=== PATIENT | male | born 1940 | race Caucasian/White ===

== ENCOUNTER 2020-08-03 08:29 | Observation (INO) | payer MEDICARE ==
[2020-08-03 09:01] LABS: Absolute Neutrophil Ct (ANC) 4.13 (1.4-6.9); BASOPHIL % 0.2 % (0.0-0.4); Basophil (Absolute #) 0.01 (0-0.4); Eosinophil % 0.2 % (0.00-5.0); Eosinophil (Absolute #) 0.01 (0-0.5); Hematocrit 47.8 % (42-50); Hemoglobin 15.4 gm/dl (12.5-18.0); Lymphocyte (Absolute #) 0.93 (1.0-4.6); Lymphocytes % 16.7 % (24.0-44.0); Mean Cell Volume 89.8 fl (78-100); Mean Corpuscular Hemoglobin 28.9 pg (26-32); Mean Corpuscular Hgb Concent. 32.2 g/dl (32-36); Mean Platelet Volume 12.3 fl (7.5-11.0); Neutrophil % 73.9 % (36.0-66.0); Platelet Count 132 K/mm3 (150-450); Red Blood Count 5.32 M/mm3 (4.1-5.6); Red Cell Distribution Width 13.3 % (11.5-14.0); White Blood Count 5.6 K/mm3 (4.0-10.5)
--- NOTE | 2020-08-03 09:13 | XRAY ---
Indication: Short of breath. Suspect Covid 19. Comparison: September 06, 2008. Portable chest demonstrates new subtle hazy right midlung peripheral groundglass airspace disease. Remaining heart and lungs unremarkable. Bony thorax intact again with mild degenerative changes.
[2020-08-03 09:18] LABS: ALBUMIN 4.7 g/dL (3.5-5.0); ANION GAP 16.6 MEQ/L (5-15); BILIRUBIN,TOTAL 0.8 mg/dL (0.2-1.3); Calcium 9.7 mg/dL (8.4-10.2); Creatinine 1 1.26 mg/dL (0.66-1.25); EST GLOMERULAR FILTRATION RATE 58.8 ML/MIN; Potassium 4.3 mmol/L (3.5-5.1); Total Protein 7.8 g/dL (6.3-8.2)
[2020-08-03] MEDS ORDERED: DECADRON 10MG INJ. IV ONE (09:50)
[2020-08-03] MEDS ORDERED: Decadron 4 MG INJ ONE (10:18)
[2020-08-03] MEDS ORDERED: DECADRON 10MG INJ. ONE (10:40)
--- NOTE | 2020-08-03 10:51 | XRAY ---
Indication: Short of breath. Suspect Covid 19. Elevated d-dimer. Multiple contiguous axial images obtained through the chest using 80 cc Isovue 370 contrast and PE protocol. Comparison: Conventional CT chest January 02, 2008. There is good opacification of the pulmonary arteries to include the lobar and segmental branches. No pulmonary embolus. Heart is not enlarged. Aorta is normal in course and caliber. No pathologic mediastinal/hilar lymphadenopathy. New small hiatal hernia. Lungs demonstrates new minimal right lung and left lower lobe patchy airspace disease without consolidation/effusion. Medial right lung base demonstrates two new 6 mm noncalcified nodules (image 51, series 3). Bony thorax intact with mild degenerative changes throughout the spine. Limited upper abdomen demonstrates interval cholecystectomy. There are again bilateral renal cysts largest right midpole today measuring 4 cm, previously 1.5 cm. Impression: 1. Negative pulmonary embolus. 2. New minimal patchy bilateral airspace disease, right lung greater than left. No consolidation/large effusion. 3. Two new indeterminant right lung base noncalcified micronodules. Findings too small for PET/CT. Recommend follow-up per Fleischner guidelines. 4. New small hiatal hernia. 5. Again incidental bilateral renal cysts
--- NOTE | 2020-08-03 12:02 | ERPHSYRPT ---
- History of Present Illness Time Seen by Provider: 08/03/20 08:45 Patient Subjective Stated Complaint: SOB Triage Nursing Assessment: Patient brought back to ED via w/c and transferred self to bed. Patient A+O X 3. Patient's skin pink, warm and dry. Patient complains of increasing SOB over the past few days when ambulating. Patient also complains of diarrhea. Patient denies pain or discomfort. Patient's currently COVID positive and is hospitlized. Lungs clear a/p ever[place]. Physician History: Patient is a 80-year-old male presents to our ED with complaints of progressive generalized weakness and shortness of breath. Patient advises that his is Covid positive and currently hospitalized. Patient symptoms are mild to moderate in intensity. No specific worsening or improving factors. No associated fever. No nausea or vomiting. No diarrhea. No rash. No headache neck pain or photophobia. Patient has no meningeal signs. Patient denies chest pain. Patient voices no other complaints or concerns at this time. Timing/Duration: day(s) (3 days) Severity: moderate Modifying Factors: Improves With: movement Associated Symptoms: shortness of breath, No nausea, No vomiting, No abdominal pain, No diaphoresis, No cough, No chills, No chest pain, No fever, No headaches, No loss of appetite Allergies/Adverse Reactions: metronidazole [From Flagyl] Allergy (Intermediate, Verified 08/03/20 08:31) Metronidazole HCl [From Flagyl] Allergy (Intermediate, Verified 08/03/20 08:31) Home Medications: Omeprazole Magnesium [Prilosec Otc] 20 mg PO DAILY 03/01/12 [History] lisinopriL [Zestril] 20 mg PO DAILY 01/04/15 [History] Hx Tetanus, Diphtheria Vaccination/Date Given: No Hx Influenza Vaccination/Date Given: No Hx Pneumococcal Vaccination/Date Given: No Immunizations Up to Date: Yes Travel Risk - International Travel Have you traveled outside of the country in past 3 weeks: No - Coronavirus Screening Are you exhibiting any of the following symptoms?: Yes Symptoms: Vomiting/Diarrhea Close contact with a COVID-19 positive Pt in past 14-21 Days: Yes - Review of Systems Constitutional: No Symptoms, No Fever, No Chills Eyes: No Symptoms Ears, Nose, & Throat: No Symptoms Respiratory: No Symptoms, No Cough, No Dyspnea Cardiac: No Symptoms, No Chest Pain, No Edema, No Syncope Abdominal/Gastrointestinal: No Symptoms, No Abdominal Pain, No Nausea, No Vomiting, No Diarrhea Genitourinary Symptoms: No Symptoms, No Dysuria Musculoskeletal: No Symptoms, No Back Pain, No Neck Pain Skin: No Symptoms, No Rash Neurological: No Symptoms, No Dizziness, No Focal Weakness, No Sensory Changes Psychological: No Symptoms Endocrine: No Symptoms Hematologic/Lymphatic: No Symptoms Immunological/Allergic: No Symptoms All Other Systems: Reviewed and Negative - Past Medical History Pertinent Past Medical History: Yes ENT History: No Pertinent History Cardiac History: High Cholesterol, Other Respiratory History: No Pertinent History Musculoskeletal History: Other GI Medical History: GERD History: No Pertinent History Psycho-Social History: Anxiety Male Reproductive Disorders: No Pertinent History Other Medical History: STATES THAT PT HAS BEEN ANXIOUS, AND HAS BEEN HURTING , PERICARDITIS - Past Surgical History Past Surgical History: Yes Neuro Surgical History: No Pertinent History Cardiac: No Pertinent History Respiratory: No Pertinent History Gastrointestinal: Cholecystectomy Genitourinary: No Pertinent History Musculoskeletal: No Pertinent History Male Surgical History: No Pertinent History - Social History Smoking Status: Former smoker Exposure to second hand smoke: Yes Drug Use: none Patient Lives Alone: No - Nursing Vital Signs Nursing Vital Signs: Initial Vital Signs Temperature 98.2 F 08/03/20 08:32 Pulse Rate 87 08/03/20 08:32 Respiratory Rate 20 08/03/20 08:32 Blood Pressure 153/98 08/03/20 08:32 O2 Sat by Pulse Oximetry 98 08/03/20 08:32 Pain Scale Pain Intensity 0 - Physical Exam General Appearance: no apparent distress, alert, other (Patient appears weak ) Eye Exam: PERRL/EOMI, eyes nml inspection Ears, Nose, Throat Exam: normal ENT inspection, TMs normal, pharynx normal, moist mucous membranes Neck Exam: normal inspection, non-tender, supple, full range of motion Respiratory Exam: normal breath sounds, lungs clear, No respiratory distress Cardiovascular Exam: regular rate/rhythm, normal heart sounds, normal peripheral pulses Gastrointestinal/Abdomen Exam: soft, normal bowel sounds, No tenderness, No mass Back Exam: normal inspection, normal range of motion, No CVA tenderness, No vertebral tenderness Extremity Exam: normal inspection, normal range of motion, pelvis stable Neurologic Exam: alert, oriented x 3, cooperative, normal mood/affect, nml cerebellar function, nml station & gait, sensation nml, No motor deficits Skin Exam: normal color, warm, dry, No rash Lymphatic Exam: No adenopathy SpO2: 98 - Course Nursing assessment & vital signs reviewed: Yes EKG Interpreted by Me: RATE (85), Sinus Rhythm, NORMAL AXIS, NORMAL INTERVALS - Radiology Exams Chest X-ray Interpretation: Teleradiologist Report (Right midlung haziness and peripheral groundglass appearances.) - CT Exams Chest CT Interpretation: Tele-radiologist Report (CT chest negative for pulmonary embolism. New minimal patchy bilateral airspace disease right lung greater than left no consolidation or large effusion. To new indeterminate right lung base noncalcified micronodules. Finding too small for PET scan. Recommend follow- up. New small hiatal hernia a) Ordered Tests: Active Orders 24 hr Category Date Time Status Ict Project Manager STAT Care 08/03/20 08:36 Active EKG-ER Only STAT Care 08/03/20 08:35 Active IV Insertion STAT Care 08/03/20 08:35 Active Pulse Oximetry (ED) STAT Care 08/03/20 08:35 Active CHEST 1 VIEW (PORTABLE) Stat Exams 08/03/20 08:36 Completed CHEST WITH CONTRAST [CT] Routine Exams 08/03/20 10:04 Completed CBC W DIFF Stat Lab 08/03/20 08:40 Completed CMP Stat Lab 08/03/20 08:40 Completed D-DIMER QUANTITATIVE Stat Lab 08/03/20 08:40 Completed NT PRO BNP Stat Lab 08/03/20 08:40 Completed TROPONIN Q3H Lab 08/03/20 08:40 Completed TROPONIN Q3H Lab 08/03/20 12:10 Received TROPONIN Q3H Lab 08/03/20 14:45 Ordered TROPONIN Q3H Lab 08/03/20 17:45 Ordered TROPONIN Q3H Lab 08/03/20 20:45 Ordered Medication Summary Generic Name Dose Route Start Last Admin Trade Name Freq PRN Reason Stop Dose Admin Sodium Chloride 1,000 mls @ 100 mls/hr 08/03/20 12:30 Sodium Chloride 0.9% 1000 Ml IV 09/02/20 12:29 .Q10H COREY Discontinued Medications Generic Name Dose Route Start Last Admin Trade Name Freq PRN Reason Stop Dose Admin Dexamethasone Sodium Phosphate 8 mg 08/03/20 09:50 08/03/20 10:40 Decadron 10mg Inj. IV 08/03/20 09:51 8 mg STAT ONE Administration Dexamethasone Sodium Phosphate Confirm 08/03/20 10:18 Decadron 4 Mg Inj Administered 08/03/20 10:19 Dose 8 mg .ROUTE .STK-MED ONE Dexamethasone Sodium Phosphate Confirm 08/03/20 10:40 Decadron 10mg Inj. Administered 08/03/20 10:41 Dose 10 mg .ROUTE .STK-MED ONE Lab/Rad Data: Laboratory Result Diagrams 08/03/20 08:40 08/03/20 08:40 Laboratory Results 08/03/20 08/03/20 08/03/20 Range/Units 09:59 08:40 08:40 WBC (4.0-10.5) K/mm3 RBC (4.1-5.6) M/mm3 Hgb (12.5-18.0) gm/dl Hct (42-50) % MCV (78-100) fl MCH (26-32) pg MCHC (32-36) g/dl RDW (11.5-14.0) % Plt Count (150-450) K/mm3 MPV (7.5-11.0) fl Gran % (36.0-66.0) % Eos # (Auto) (0-0.5) Absolute Lymphs (auto) (1.0-4.6) Absolute Monos (auto) (0.0-1.3) Lymphocytes % (24.0-44.0) % Monocytes % (0.0-12.0) % Eosinophils % (0.00-5.0) % Basophils % (0.0-0.4) % Absolute Granulocytes (1.4-6.9) Basophils # (0-0.4) D-Dimer 890 H* (215-500) ng/mL Sodium (137-145) mmol/L Potassium (3.5-5.1) mmol/L Chloride (98-107) mmol/L Carbon Dioxide (22-30) mmol/L Anion Gap (5-15) MEQ/L BUN (9-20) mg/dL Creatinine (0.66-1.25) mg/dL Estimated GFR ML/MIN Glucose (74-106) mg/dL Calcium (8.4-10.2) mg/dL Total Bilirubin (0.2-1.3) mg/dL AST (17-59) U/L ALT (0-50) U/L Alkaline Phosphatase (38-126) U/L Troponin I < 0.012 (0.000-0.034) ng/mL NT-Pro-B Natriuret Pep (0-1800) pg/mL Serum Total Protein (6.3-8.2) g/dL Albumin (3.5-5.0) g/dL SARS-CoV-2 (PCR) POSITIVE A (NEGATIVE) 08/03/20 08/03/20 Range/Units 08:40 08:40 WBC 5.6 (4.0-10.5) K/mm3 RBC 5.32 (4.1-5.6) M/mm3 Hgb 15.4 (12.5-18.0) gm/dl Hct 47.8 (42-50) % MCV 89.8 (78-100) fl MCH 28.9 (26-32) pg MCHC 32.2 (32-36) g/dl RDW 13.3 (11.5-14.0) % Plt Count 132 L (150-450) K/mm3 MPV 12.3 H (7.5-11.0) fl Gran % 73.9 H (36.0-66.0) % Eos # (Auto) 0.01 (0-0.5) Absolute Lymphs (auto) 0.93 L (1.0-4.6) Absolute Monos (auto) 0.50 (0.0-1.3) Lymphocytes % 16.7 L (24.0-44.0) % Monocytes % 9.0 (0.0-12.0) % Eosinophils % 0.2 (0.00-5.0) % Basophils % 0.2 (0.0-0.4) % Absolute Granulocytes 4.13 (1.4-6.9) Basophils # 0.01 (0-0.4) D-Dimer (215-500) ng/mL Sodium 139 (137-145) mmol/L Potassium 4.3 (3.5-5.1) mmol/L Chloride 105 (98-107) mmol/L Carbon Dioxide 22 (22-30) mmol/L Anion Gap 16.6 H (5-15) MEQ/L BUN 30 H (9-20) mg/dL Creatinine 1.26 H (0.66-1.25) mg/dL Estimated GFR 58.8 ML/MIN Glucose 144 H (74-106) mg/dL Calcium 9.7 (8.4-10.2) mg/dL Total Bilirubin 0.80 (0.2-1.3) mg/dL AST 44 (17-59) U/L ALT 16 (0-50) U/L Alkaline Phosphatase 46 (38-126) U/L Troponin I (0.000-0.034) ng/mL NT-Pro-B Natriuret Pep 122 (0-1800) pg/mL Serum Total Protein 7.8 (6.3-8.2) g/dL Albumin 4.7 (3.5-5.0) g/dL SARS-CoV-2 (PCR) (NEGATIVE) - Progress Progress: improved Progress Note: 08/03/20 12:01 Patient ambulated in his room. Sats remain normal. However patient was very weak and fatigued per RN. D-dimer positive. CTA chest negative for PE. Incidental lung nodules observed. Patient will require follow-up. Case discussed with Dr. Turner. Dr. Turner was advised and informed of these nodules and was informed that patient will require follow-up for these nodules as an outpatient. Patient was informed of the nodules as well and is aware of it. Patient understand that he will require follow-up for these nodules. Patient received a dose of Decadron. IV fluids ordered. We will admit patient to the Covid unit for further observation and treatment. Patient agrees to admission to [facility] for further evaluation and treatment. 08/03/20 12:24 08/03/20 12:25 Counseled pt/family regarding: lab results, diagnosis, rad results - Departure Departure Disposition: Observation Clinical Impression: Generalized weakness, Hiatal hernia, Lung nodules, Degenerative arthritis, COVID-19, Renal cyst, Dehydration Condition: Stable Critical Care Time: No Referrals: NASRIN ESCALANTE DO [Primary Care Provider] -
[2020-08-03] MEDS ORDERED: Sodium Chloride 0.9% 1000 ML 1,000 ML IV SCH (12:30)
[2020-08-03 12:59] VITALS: BP 122/84
[2020-08-03 14:19] VITALS: PULSE 83; O2SAT 95
== END 2020-08-03 15:54 | disposition home or self-care (01) ==
LOC: ED 08:29 → MED SURG 12:41
PROVIDERS: ADMIT Family Medicine; ATTEND Family Medicine
DX: U07.1 COVID-19 (principal); R06.02 Shortness of breath; R19.7 Diarrhea, unspecified; R53.1 Weakness; E78.00 Pure hypercholesterolemia, unspecified; E86.0 Dehydration; R91.8 Other nonspecific abnormal finding of lung field
CPT/HCPCS: 36000; 36415; 71045; 71260; 80053; 83880; 84484; 85025; 85379; 93005; 93041; 93268; 94760; 94762; 96374; 99285; G0378; U0003; J1100

== ENCOUNTER 2020-08-21 11:05 | Emergency (ER) | payer MEDICARE ==
--- NOTE | 2020-08-21 11:39 | ERPHSYRPT ---
- History of Present Illness Source: patient Exam Limitations: no limitations Patient Subjective Stated Complaint: Pt came to the ER due to his and son made him, states that he has been "wobbly", pt denies Triage Nursing Assessment: Pt brought to the ER by his son, vitals wnl, pt denies any issues, denies pain, pulses normal, denies difficulty breathing, pt did have diarrhea a couple of days ago, skin n/w/d, doesn't appear to be in any distress Timing/Duration: other (Patient denies symptoms.) Associated Symptoms: denies symptoms Hx Tetanus, Diphtheria Vaccination/Date Given: No Hx Influenza Vaccination/Date Given: No Hx Pneumococcal Vaccination/Date Given: No <NURYS CUBA - Last Filed: 08/21/20 12:44> <TIFFANY KAISER - Last Filed: 08/21/20 14:14> - History of Present Illness Time Seen by Provider: 08/21/20 11:33 Physician History: This is a 80-year-old white male patient of Dr. Le who was brought to the emergency room by his son in a private vehicle. Patient states that he has no complaints but his was concerned that he appears weak, unsteady in his gait and wobbly. Patient denies any symptoms whatsoever. He has no chest pain. He has no shortness of breath, he has no abdominal pain. He has had no nausea or v omiting. Approximately 2 days ago he had a single episode of loose stools. Patient has a history of elevated cholesterol, hypertension and gastroesophageal reflux disease. On 08/03/2020 patient was diagnosed with COVID-19 infection and he stayed in the hospital for approximately 1 to 2 weeks and then was discharged to home. Patient does have some confusion issues based on his discharge summary from the most recent hospitalization. Patient denies cough and he denies fever. Patient does not believe he needs to be in the emergency department. Patient ambulated to his room in the emergency department from the waiting area without any difficulty and on his own. (NURYS CUBA) Allergies/Adverse Reactions: metronidazole [From Flagyl] Allergy (Intermediate, Verified 08/21/20 11:21) Metronidazole HCl [From Flagyl] Allergy (Intermediate, Verified 08/21/20 11:21) Home Medications: Omeprazole Magnesium [Prilosec Otc] 20 mg PO DAILY 03/01/12 [History] lisinopriL [Zestril] 20 mg PO DAILY 01/04/15 [History] Travel Risk - International Travel Have you traveled outside of the country in past 3 weeks: No - Coronavirus Screening Are you exhibiting any of the following symptoms?: Yes Close contact with a COVID-19 positive Pt in past 14-21 Days: Yes <NURYS CUBA - Last Filed: 08/21/20 12:44> - Review of Systems Constitutional: No Symptoms Eyes: No Symptoms Ears, Nose, & Throat: No Symptoms Respiratory: No Symptoms Cardiac: No Symptoms Abdominal/Gastrointestinal: No Symptoms Genitourinary Symptoms: No Symptoms Musculoskeletal: No Symptoms Skin: No Symptoms Neurological: No Symptoms Psychological: No Symptoms Endocrine: No Symptoms Hematologic/Lymphatic: No Symptoms Immunological/Allergic: No Symptoms All Other Systems: Reviewed and Negative <NURYS CUBA - Last Filed: 08/21/20 12:44> - Past Medical History Pertinent Past Medical History: Yes ENT History: No Pertinent History Cardiac History: High Cholesterol, Other Respiratory History: No Pertinent History Musculoskeletal History: Other GI Medical History: GERD History: No Pertinent History Psycho-Social History: Anxiety Male Reproductive Disorders: No Pertinent History Other Medical History: STATES THAT PT HAS BEEN ANXIOUS, AND HAS BEEN HURTING , PERICARDITIS - Past Surgical History Past Surgical History: Yes Neuro Surgical History: No Pertinent History Cardiac: No Pertinent History Respiratory: No Pertinent History Gastrointestinal: Cholecystectomy Genitourinary: No Pertinent History Musculoskeletal: No Pertinent History Male Surgical History: No Pertinent History - Social History Smoking Status: Former smoker Exposure to second hand smoke: Yes Drug Use: none Patient Lives Alone: No <NURYS CUBA - Last Filed: 08/21/20 12:44> - Physical Exam General Appearance: no apparent distress, alert Eye Exam: PERRL/EOMI, eyes nml inspection Ears, Nose, Throat Exam: normal ENT inspection, moist mucous membranes Neck Exam: normal inspection, non-tender, supple, full range of motion Respiratory Exam: normal breath sounds, lungs clear, airway intact, No chest tenderness, No respiratory distress Cardiovascular Exam: regular rate/rhythm, normal heart sounds, normal peripheral pulses Gastrointestinal/Abdomen Exam: soft, normal bowel sounds, No tenderness Rectal Exam: not done Back Exam: normal inspection, normal range of motion, No CVA tenderness, No vertebral tenderness Extremity Exam: normal inspection, normal range of motion, pelvis stable Neurologic Exam: alert, oriented x 3, cooperative, sales facilitator II-XII nml as tested, normal mood/affect, nml cerebellar function, sensation nml, No nml station & gait Skin Exam: normal color, warm, dry Lymphatic Exam: No adenopathy SpO2 Interpretation: normal SpO2: 97 O2 Delivery: Room Air <NURYS CUBA - Last Filed: 08/21/20 12:44> - Nursing Vital Signs Nursing Vital Signs: Initial Vital Signs Temperature 97.6 F 08/21/20 11:12 Pulse Rate 78 08/21/20 11:12 Respiratory Rate 23 08/21/20 11:12 Blood Pressure 120/98 08/21/20 11:12 O2 Sat by Pulse Oximetry 97 08/21/20 11:12 Pain Scale Pain Intensity 0 - Course Nursing assessment & vital signs reviewed: Yes EKG Interpreted by Me: RATE (76), Sinus Rhythm, NORMAL AXIS, NORMAL QRS, NORMAL ST-T, Other (There are no acute ischemic changes on today's EKG. The CA interval is slightly prolonged. There is significant improvement on today's EKG compared to the EKG dated 08/03/2020) <NURYS CUBA - Last Filed: 08/21/20 12:44> - Radiology Exams Chest X-ray Interpretation: Interpreted by me, Negative - CT Exams Head CT Interpretation: Negative <TIFFANY KAISER - Last Filed: 08/21/20 14:14> Ordered Tests: Active Orders 24 hr Category Date Time Status EKG-ER Only STAT Care 08/21/20 11:43 Active IV Insertion STAT Care 08/21/20 11:43 Active Isolation, Initiate & Maintain STAT Care 08/21/20 11:43 Active CHEST 1 VIEW (PORTABLE) Stat Exams 08/21/20 13:34 Ordered HEAD WITHOUT CONTRAST [CT] Stat Exams 08/21/20 12:02 Completed CBC Stat Lab 08/21/20 11:50 Completed CMP Stat Lab 08/21/20 11:50 Completed INFLUENZA A+B MEL Stat Lab 08/21/20 11:58 Completed Lactic Acid Stat Lab 08/21/20 11:43 Completed [place] Screen Stat Lab 08/21/20 11:50 Completed TROPONIN Q3H Lab 08/21/20 11:50 Completed TROPONIN Q3H Lab 08/21/20 14:45 Ordered TROPONIN Q3H Lab 08/21/20 17:45 Ordered TROPONIN Q3H Lab 08/21/20 20:45 Ordered TROPONIN Q3H Lab 08/21/20 23:45 Ordered UA W/RFX UR CULTURE Stat Lab 08/21/20 12:23 Ordered Medication Summary Discontinued Medications Generic Name Dose Route Start Last Admin Trade Name Fremaria fernanda PRN Reason Stop Dose Admin Sodium Chloride 1,000 mls @ 999 mls/hr 08/21/20 11:43 08/21/20 13:29 Sodium Chloride 0.9% 1000 Ml IV 08/21/20 12:43 Infused .Q1H1M STA Infusion Sodium Chloride Confirm 08/21/20 11:56 Sodium Chloride 0.9% 1000 Ml Administered 08/21/20 11:57 Dose 1,000 mls @ ud .ROUTE .STK-MED ONE Lab/Rad Data: Laboratory Result Diagrams 08/21/20 11:50 08/21/20 11:50 Laboratory Results 08/21/20 08/21/20 08/21/20 Range/Units 11:58 11:50 11:50 WBC (4.0-10.5) K/mm3 RBC (4.1-5.6) M/mm3 Hgb (12.5-18.0) gm/dl Hct (42-50) % MCV (78-100) fl MCH (26-32) pg MCHC (32-36) g/dl RDW (11.5-14.0) % Plt Count (150-450) K/mm3 MPV (7.5-11.0) fl Sodium (137-145) mmol/L Potassium (3.5-5.1) mmol/L Chloride (98-107) mmol/L Carbon Dioxide (22-30) mmol/L Anion Gap (5-15) MEQ/L BUN (9-20) mg/dL Creatinine (0.66-1.25) mg/dL Estimated GFR ML/MIN Glucose (74-106) mg/dL Lactic Acid (0.4-2.0) Calcium (8.4-10.2) mg/dL Total Bilirubin (0.2-1.3) mg/dL AST (17-59) U/L ALT (0-50) U/L Alkaline Phosphatase (38-126) U/L Troponin I < 0.012 (0.000-0.034) ng/mL Serum Total Protein (6.3-8.2) g/dL Albumin (3.5-5.0) g/dL Monoscreen NEGATIVE (Negative) Influenza Type A Ag NEGATIVE (NEGATIVE) Influenza Type B Ag NEGATIVE (NEGATIVE) 08/21/20 08/21/20 08/21/20 Range/Units 11:50 11:50 11:43 WBC 7.7 (4.0-10.5) K/mm3 RBC 4.92 (4.1-5.6) M/mm3 Hgb 14.3 (12.5-18.0) gm/dl Hct 45.4 (42-50) % MCV 92.3 (78-100) fl MCH 29.1 (26-32) pg MCHC 31.5 L (32-36) g/dl RDW 13.9 (11.5-14.0) % Plt Count 193 (150-450) K/mm3 MPV 12.3 H (7.5-11.0) fl Sodium 138 (137-145) mmol/L Potassium 4.4 (3.5-5.1) mmol/L Chloride 104 (98-107) mmol/L Carbon Dioxide 28 (22-30) mmol/L Anion Gap 10.8 (5-15) MEQ/L BUN 18 (9-20) mg/dL Creatinine 0.99 (0.66-1.25) mg/dL Estimated GFR > 60.0 ML/MIN Glucose 141 H (74-106) mg/dL Lactic Acid 2.0 (0.4-2.0) Calcium 10.1 (8.4-10.2) mg/dL Total Bilirubin 0.50 (0.2-1.3) mg/dL AST 25 (17-59) U/L ALT 17 (0-50) U/L Alkaline Phosphatase 54 (38-126) U/L Troponin I (0.000-0.034) ng/mL Serum Total Protein 7.6 (6.3-8.2) g/dL Albumin 4.1 (3.5-5.0) g/dL Monoscreen (Negative) Influenza Type A Ag (NEGATIVE) Influenza Type B Ag (NEGATIVE) - Progress Progress: improved, pain not gone completely, re-examined Counseled pt/family regarding: lab results, diagnosis, need for follow-up, rad results <NURYS CUBA - Last Filed: 08/21/20 12:44> - Progress Progress: unchanged <TIFFANY KAISER - Last Filed: 08/21/20 14:14> - Progress Progress Note: 08/21/20 12:44 I reviewed the patient history, condition, pending laboratory and work-up studies with Dr. Tiffany Kaiser. He agrees to assume care of this patient and make final disposition. (NURYS CUBA) 08/21/20 14:12 Discussed with daughter will release. Residual effects of covid. (TIFFANY KAISER) - Departure Departure Disposition: Home Critical Care Time: No <NURYS CUBA - Last Filed: 08/21/20 12:44> - Departure Departure Disposition: Home Critical Care Time: No <TIFFANY KAISER - Last Filed: 08/21/20 14:14> - Departure Clinical Impression: Fatigue after COVID-19 vaccination Condition: Stable Referrals: NASRIN LE DO [Primary Care Provider] -
[2020-08-21] MEDS ORDERED: Sodium Chloride 0.9% 1000 ML 1,000 ML IV STA (11:43)
[2020-08-21] MEDS ORDERED: Sodium Chloride 0.9% 1000 ML 1,000 ML ONE (11:56)
[2020-08-21 12:24] LABS: Hematocrit 45.4 % (42-50); Hemoglobin 14.3 gm/dl (12.5-18.0); Mean Cell Volume 92.3 fl (78-100); Mean Corpuscular Hemoglobin 29.1 pg (26-32); Mean Corpuscular Hgb Concent. 31.5 g/dl (32-36); Mean Platelet Volume 12.3 fl (7.5-11.0); Platelet Count 193 K/mm3 (150-450); Red Blood Count 4.92 M/mm3 (4.1-5.6); Red Cell Distribution Width 13.9 % (11.5-14.0); White Blood Count 7.7 K/mm3 (4.0-10.5)
--- NOTE | 2020-08-21 12:26 | XRAY ---
Indication: Unsteady gait. Multiple contiguous axial images obtained through the head without contrast. Comparison: August 16, 2011. Age-appropriate global atrophy and minimal periventricular degenerative micro-ischemia bilaterally. No acute intracranial hemorrhage, abnormal extra-axial fluid collection, or mass effect. Fourth ventricle is midline without hydrocephalus. Bony calvarium intact. Visualized paranasal sinuses and mastoid air cells are clear. Impression: Nonacute senile brain.
[2020-08-21 12:34] LABS: ALBUMIN 4.1 g/dL (3.5-5.0); ALKALINE PHOSPHATASE 54 U/L (38-126); ANION GAP 10.8 MEQ/L (5-15); BLOOD UREA NITROGEN 18 mg/dL (9-20); CHLORIDE 104 mmol/L (98-107); Calcium 10.1 mg/dL (8.4-10.2); Carbon Dioxide 28 mmol/L (22-30); Creatinine 1 0.99 mg/dL (0.66-1.25); EST GLOMERULAR FILTRATION RATE > 60.0 ML/MIN; Glucose 141 mg/dL (74-106); Potassium 4.4 mmol/L (3.5-5.1); SGOT/AST 25 U/L (17-59); SGPT/ALT 17 U/L (0-50); SODIUM 138 mmol/L (137-145); Total Protein 7.6 g/dL (6.3-8.2)
[2020-08-21 12:39] LABS: Appearance CLEAR (CLEAR); Bilirubin NEGATIVE (NEGATIVE); Blood NEGATIVE Ery/ul (0-5); Glucose NEGATIVE (NEGATIVE); Ketones NEGATIVE (NEGATIVE); Leukocyte Esterase NEGATIVE (NEGATIVE); Nitrite NEGATIVE (NEGATIVE); Protein,Urine Dip NEGATIVE (Negative); Specific Gravity 1.006 (1.005-1.025); Urobilinogen NEGATIVE mg/dL (0-1)
[2020-08-21 12:45] VITALS: O2SAT 97
[2020-08-21 13:25] LABS: INFLUENZA A NEGATIVE (NEGATIVE); INFLUENZA B NEGATIVE (NEGATIVE)
[2020-08-21 13:32] VITALS: BP 123/78; PULSE 65
--- NOTE | 2020-08-21 14:18 | XRAY ---
Indication: Short of breath. Recovering Covid 19. Comparison: August 03, 2020. Portable chest demonstrates minimally worsening diffuse right lung and left base airspace disease again without consolidation/large effusion. Heart is not enlarged. Bony thorax intact.
== END 2020-08-21 14:24 | disposition home or self-care (01) ==
LOC: ED 11:05
DX: R53.83 Other fatigue (principal); R26.81 Unsteadiness on feet; E78.00 Pure hypercholesterolemia, unspecified; I10 Essential (primary) hypertension; K21.9 Gastro-esophageal reflux disease without esophagitis; Z86.16 Personal history of COVID-19
CPT/HCPCS: 36000; 36415; 70450; 71045; 80053; 81001; 83605; 84484; 85027; 86308; 87400; 93005; 96360; 99284

== ENCOUNTER 2021-09-03 08:22 | Observation (INO) | payer MEDICARE ==
[2021-09-03 09:18] LABS: Absolute Neutrophil Ct (ANC) 9.76 (1.4-6.9); Basophil (Absolute #) 0.03 (0-0.4); Eosinophil % 0.2 % (0.00-5.0); Eosinophil (Absolute #) 0.03 (0-0.5); Hematocrit 44.7 % (42-50); Hemoglobin 14.6 gm/dl (12.5-18.0); Lymphocyte (Absolute #) 1.31 (1.0-4.6); Lymphocytes % 10.7 % (24.0-44.0); Mean Cell Volume 88.2 fl (78-100); Mean Corpuscular Hemoglobin 28.8 pg (26-32); Mean Corpuscular Hgb Concent. 32.7 g/dl (32-36); Mean Platelet Volume 12.7 fl (7.5-11.0); Monocyte (Absolute #) 1.08 (0.0-1.3); Monocytes % 8.8 % (0.0-12.0); Neutrophil % 80.1 % (36.0-66.0); Platelet Count 180 K/mm3 (150-450); Red Blood Count 5.07 M/mm3 (4.1-5.6); Red Cell Distribution Width 13.5 % (11.5-14.0); White Blood Count 12.2 K/mm3 (4.0-10.5)
[2021-09-03 09:20] LABS: INR 1.12 (0.8-3.0); PROTIME 13.2 SECONDS (9.4-12.5)
--- NOTE | 2021-09-03 09:23 | XRAY ---
Indication: Cough, nausea, and vomiting. Comparison: August 21, 2020. Portable apical lordotic chest demonstrates normal heart and lungs again with left mid lung calcified granuloma. Bony thorax intact again with mild osteopenia and degenerative changes. No new/acute findings.
[2021-09-03 09:33] LABS: ALBUMIN 4.6 g/dL (3.5-5.0); ALKALINE PHOSPHATASE 59 U/L (38-126); AMYLASE 49 U/L (30-110); ANION GAP 16.5 MEQ/L (5-15); BLOOD UREA NITROGEN 18 mg/dL (9-20); CHLORIDE 102 mmol/L (98-107); Calcium 9.9 mg/dL (8.4-10.2); Carbon Dioxide 23 mmol/L (22-30); Creatinine 1 1.19 mg/dL (0.66-1.25); EST GLOMERULAR FILTRATION RATE > 60.0 ML/MIN; Glucose 152 mg/dL (74-106); LIPASE 61 U/L (23-300); MAGNESIUM 1.5 mg/dL (1.6-2.3); NT PRO BNP 340 pg/mL (0-1800); Potassium 4.4 mmol/L (3.5-5.1); SGOT/AST 22 U/L (17-59); SGPT/ALT 12 U/L (0-50); SODIUM 137 mmol/L (137-145); Total Protein 7.4 g/dL (6.3-8.2)
[2021-09-03 09:58] LABS: COVID AG -BINAX NOW RAPID TEST POSITIVE (NEGATIVE)
[2021-09-03 10:09] LABS: INFLUENZA A NEGATIVE (NEGATIVE); INFLUENZA B NEGATIVE (NEGATIVE)
[2021-09-03] MEDS ORDERED: Sodium Chloride 0.9% 1000 ML 1,000 ML IV STA (10:59)
--- NOTE | 2021-09-03 11:01 | XRAY ---
Indication: Cough, nausea, and vomiting. Elevated d-dimer. Multiple contiguous axial images obtained through the chest using 80 cc Isovue 370 contrast and PE protocol. Comparison: August 03, 2020. There is good opacification of the pulmonary arteries to include the lobar and segmental branches. Again no pulmonary embolus. Heart is not enlarged. Aorta is normal in course and caliber. No pathologic mediastinal/hilar lymphadenopathy. Again small hiatal hernia. Lungs again demonstrates minimal bilateral dependent atelectasis with stable 2 medial right base noncalcified micronodules and minimal posterior left lower lobe calcified pleural plaquing. No suspicious pulmonary mass, infiltrate, effusion, or pneumothorax. Bony thorax intact again with mild osteopenia and mild degenerative changes throughout the spine. Limited upper abdomen again demonstrates fatty liver, small left renal cyst, and cholecystectomy clips. Impression: 1. Continued negative pulmonary embolus. No new/acute cardiopulmonary abnormalities. 2. Again incidental bilateral dependent atelectasis, 2 right base noncalcified micronodules, minimal left lower lobe calcified pleural plaquing, small hiatal hernia, fatty liver, and left renal cyst.
[2021-09-03] MEDS ORDERED: Sodium Chloride 0.9% 1000 ML 1,000 ML ONE (11:04)
--- NOTE | 2021-09-03 11:22 | ERPHSYRPT ---
- History of Present Illness Time Seen by Provider: 09/03/21 08:30 Historian: patient, family Exam Limitations: clinical condition Patient Subjective Stated Complaint: pt here for vomiting x3 since yesterday, aches all over, cough, no fever. no loose stools . Triage Nursing Assessment: pt alert, walked in,resp easy, skin w/d/p. face mask in place, abd soft Physician History: Patient is a 81-year-old white male who presents with a complaint of nausea and vomiting x3. He has had fever he has had weakness body aches coughing for 3 days he was not vaccinated and his COVID symptoms are basically positive. Patient does suffer from some dementia and some of his history was provided by his family per phone. Timing/Duration: day(s) (3) Quality: aching Abdominal Pain Onset Location: generalized abdomen Pain Radiation: no radiation Severity of Pain-Max: mild Severity of Pain-Current: mild Allergies/Adverse Reactions: metronidazole [From Flagyl] Allergy (Intermediate, Verified 09/03/21 08:32) Metronidazole HCl [From Flagyl] Allergy (Intermediate, Verified 09/03/21 08:32) Home Medications: Omeprazole Magnesium [Prilosec Otc] 20 mg PO DAILY 03/01/12 [History] lisinopriL [Zestril] 20 mg PO DAILY 01/04/15 [History] Ergocalciferol (Vitamin D2) [Vitamin D2] 1 ea DAILY 09/03/21 [History] Fluoxetine HCl 20 mg [Prozac 20 MG] 10 mg DAILY 09/03/21 [History] Losartan Potassium 1 ea DAILY 09/03/21 [History] Hx Tetanus, Diphtheria Vaccination/Date Given: No Hx Influenza Vaccination/Date Given: No Hx Pneumococcal Vaccination/Date Given: No Immunizations Up to Date: Yes Travel Risk - International Travel Have you traveled outside of the country in past 3 weeks: No - Coronavirus Screening Are you exhibiting any of the following symptoms?: Yes Symptoms: Vomiting/Diarrhea Close contact with a COVID-19 positive Pt in past 14-21 Days: No - Vaccine Status Have you recieved a Covid-19 vaccination: No - Review of Systems Constitutional: Fever, No Chills Eyes: No Symptoms Ears, Nose, & Throat: No Symptoms Respiratory: Cough, Dyspnea, Dyspnea on Exertion (JETER) Cardiac: No Chest Pain, No Edema, No Syncope Abdominal/Gastrointestinal: Abdominal Pain, Nausea, Vomiting, Diarrhea Genitourinary Symptoms: No Dysuria Musculoskeletal: No Back Pain, No Neck Pain Skin: No Rash Neurological: No Dizziness, No Focal Weakness, No Sensory Changes Psychological: No Symptoms Endocrine: No Symptoms All Other Systems: Reviewed and Negative - Past Medical History Pertinent Past Medical History: Yes ENT History: No Pertinent History Cardiac History: High Cholesterol, Other Respiratory History: No Pertinent History Musculoskeletal History: Other GI Medical History: GERD History: No Pertinent History Psycho-Social History: Anxiety Male Reproductive Disorders: No Pertinent History Other Medical History: STATES THAT PT HAS BEEN ANXIOUS, AND HAS BEEN HURTING , PERICARDITIS, ? bladder ca - Past Surgical History Past Surgical History: Yes Neuro Surgical History: No Pertinent History Cardiac: No Pertinent History Respiratory: No Pertinent History Gastrointestinal: Cholecystectomy Genitourinary: No Pertinent History Musculoskeletal: No Pertinent History Male Surgical History: No Pertinent History - Social History Smoking Status: Former smoker Exposure to second hand smoke: Yes Drug Use: none Patient Lives Alone: No - Nursing Vital Signs Nursing Vital Signs: Initial Vital Signs Temperature 97.1 F 09/03/21 08:23 Pulse Rate 77 09/03/21 08:23 Respiratory Rate 18 09/03/21 08:23 Blood Pressure 135/90 09/03/21 08:23 O2 Sat by Pulse Oximetry 97 09/03/21 08:23 Pain Scale Pain Intensity 4 - Physical Exam General Appearance: no apparent distress, mild distress, alert Eye Exam: PERRL/EOMI, eyes nml inspection Ears, Nose, Throat Exam: normal ENT inspection, pharynx normal, dry mucous membranes Neck Exam: normal inspection, non-tender, supple, full range of motion Respiratory Exam: normal breath sounds, lungs clear, No respiratory distress Cardiovascular Exam: regular rate/rhythm, normal heart sounds Gastrointestinal/Abdomen Exam: soft, tenderness, No mass Back Exam: normal inspection, normal range of motion, No CVA tenderness, No vertebral tenderness Extremity Exam: normal inspection, normal range of motion, pelvis stable Neurologic Exam: alert, oriented x 3, cooperative, normal mood/affect, nml cerebellar function, sensation nml, No motor deficits Skin Exam: normal color, warm, dry SpO2: 96 - Course Nursing assessment & vital signs reviewed: Yes EKG Interpreted by Me: RATE (77), Sinus Rhythm, NORMAL AXIS, NORMAL INTERVALS, Non-specific ST Changes, Other (APC) - Radiology Exams Chest X-ray Interpretation: Reviewed by me - CT Exams Chest CT Interpretation: Negative (No acute changes.) Ordered Tests: Active Orders 24 hr Category Date Time Status EKG-ER Only STAT Care 09/03/21 08:42 Active IV Insertion STAT Care 09/03/21 08:42 Active CHEST 1 VIEW (PORTABLE) Stat Exams 09/03/21 08:43 Completed CHEST WITH CONTRAST [CT] Stat Exams 09/03/21 09:30 Completed AMYLASE Stat Lab 09/03/21 08:25 Completed BLOOD CULTURE Stat Lab 09/03/21 09:15 Received CBC W DIFF Stat Lab 09/03/21 08:25 Completed CMP Stat Lab 09/03/21 08:25 Completed COVID AG-BINAX NOW RAPID TEST Stat Lab 09/03/21 09:27 Completed D-DIMER QUANTITATIVE Stat Lab 09/03/21 08:25 Completed INFLUENZA A+B MEL Stat Lab 09/03/21 09:15 Completed LIPASE Stat Lab 09/03/21 08:25 Completed Lactic Acid Stat Lab 09/03/21 08:42 Completed MAGNESIUM Stat Lab 09/03/21 08:25 Completed NT PRO BNP Stat Lab 09/03/21 08:25 Completed PROCALCITONIN Stat Lab 09/03/21 Ordered PROTIME WITH INR Stat Lab 09/03/21 08:25 Completed TROPONIN Q3H Lab 09/03/21 08:25 Completed TROPONIN Q3H Lab 09/03/21 11:45 Ordered TROPONIN Q3H Lab 09/03/21 14:45 Ordered TROPONIN Q3H Lab 09/03/21 17:45 Ordered TROPONIN Q3H Lab 09/03/21 20:45 Ordered UA W/RFX UR CULTURE Stat Lab 09/03/21 08:43 Ordered Medication Summary Generic Name Dose Route Start Last Admin Trade Name Freq PRN Reason Stop Dose Admin Sodium Chloride 1,000 mls @ 999 mls/hr 09/03/21 10:59 09/03/21 11:09 Sodium Chloride 0.9% 1000 Ml IV 09/03/21 11:59 999 mls/hr .Q1H1M STA Administration Discontinued Medications Generic Name Dose Route Start Last Admin Trade Name Freq PRN Reason Stop Dose Admin Sodium Chloride Confirm 09/03/21 11:04 Sodium Chloride 0.9% 1000 Ml Administered 09/03/21 11:05 Dose 1,000 mls @ ud .ROUTE .STK-MED ONE Lab/Rad Data: Laboratory Result Diagrams 09/03/21 08:25 09/03/21 08:25 Laboratory Results 09/03/21 09/03/21 09/03/21 Range/Units 09:27 09:15 09:15 WBC (4.0-10.5) K/mm3 RBC (4.1-5.6) M/mm3 Hgb (12.5-18.0) gm/dl Hct (42-50) % MCV (78-100) fl MCH (26-32) pg MCHC (32-36) g/dl RDW (11.5-14.0) % Plt Count (150-450) K/mm3 MPV (7.5-11.0) fl Gran % (36.0-66.0) % Eos # (Auto) (0-0.5) Absolute Lymphs (auto) (1.0-4.6) Absolute Monos (auto) (0.0-1.3) Lymphocytes % (24.0-44.0) % Monocytes % (0.0-12.0) % Eosinophils % (0.00-5.0) % Basophils % (0.0-0.4) % Absolute Granulocytes (1.4-6.9) Basophils # (0-0.4) PT (9.4-12.5) SECONDS INR (0.8-3.0) D-Dimer (215-500) ng/mL Sodium (137-145) mmol/L Potassium (3.5-5.1) mmol/L Chloride (98-107) mmol/L Carbon Dioxide (22-30) mmol/L Anion Gap (5-15) MEQ/L BUN (9-20) mg/dL Creatinine (0.66-1.25) mg/dL Estimated GFR ML/MIN Glucose (74-106) mg/dL Lactic Acid (0.4-2.0) Calcium (8.4-10.2) mg/dL Magnesium (1.6-2.3) mg/dL Total Bilirubin (0.2-1.3) mg/dL AST (17-59) U/L ALT (0-50) U/L Alkaline Phosphatase (38-126) U/L Troponin I (0.000-0.034) ng/mL NT-Pro-B Natriuret Pep (0-1800) pg/mL Serum Total Protein (6.3-8.2) g/dL Albumin (3.5-5.0) g/dL Amylase (30-110) U/L Lipase (23-300) U/L Influenza Type A Ag NEGATIVE (NEGATIVE) Influenza Type B Ag NEGATIVE (NEGATIVE) SARS-CoV-2 Ag (Rapid) POSITIVE A* (NEGATIVE) Group A Strep Antibody NOT DETECTED (NEGATIVE) 09/03/21 09/03/21 09/03/21 Range/Units 08:42 08:25 08:25 WBC (4.0-10.5) K/mm3 RBC (4.1-5.6) M/mm3 Hgb (12.5-18.0) gm/dl Hct (42-50) % MCV (78-100) fl MCH (26-32) pg MCHC (32-36) g/dl RDW (11.5-14.0) % Plt Count (150-450) K/mm3 MPV (7.5-11.0) fl Gran % (36.0-66.0) % Eos # (Auto) (0-0.5) Absolute Lymphs (auto) (1.0-4.6) Absolute Monos (auto) (0.0-1.3) Lymphocytes % (24.0-44.0) % Monocytes % (0.0-12.0) % Eosinophils % (0.00-5.0) % Basophils % (0.0-0.4) % Absolute Granulocytes (1.4-6.9) Basophils # (0-0.4) PT 13.2 H (9.4-12.5) SECONDS INR 1.12 (0.8-3.0) D-Dimer 845 H* (215-500) ng/mL Sodium (137-145) mmol/L Potassium (3.5-5.1) mmol/L Chloride (98-107) mmol/L Carbon Dioxide (22-30) mmol/L Anion Gap (5-15) MEQ/L BUN (9-20) mg/dL Creatinine (0.66-1.25) mg/dL Estimated GFR ML/MIN Glucose (74-106) mg/dL Lactic Acid 1.3 (0.4-2.0) Calcium (8.4-10.2) mg/dL Magnesium (1.6-2.3) mg/dL Total Bilirubin (0.2-1.3) mg/dL AST (17-59) U/L ALT (0-50) U/L Alkaline Phosphatase (38-126) U/L Troponin I < 0.012 (0.000-0.034) ng/mL NT-Pro-B Natriuret Pep (0-1800) pg/mL Serum Total Protein (6.3-8.2) g/dL Albumin (3.5-5.0) g/dL Amylase (30-110) U/L Lipase (23-300) U/L Influenza Type A Ag (NEGATIVE) Influenza Type B Ag (NEGATIVE) SARS-CoV-2 Ag (Rapid) (NEGATIVE) Group A Strep Antibody (NEGATIVE) 09/03/21 09/03/21 Range/Units 08:25 08:25 WBC 12.2 H (4.0-10.5) K/mm3 RBC 5.07 (4.1-5.6) M/mm3 Hgb 14.6 (12.5-18.0) gm/dl Hct 44.7 (42-50) % MCV 88.2 (78-100) fl MCH 28.8 (26-32) pg MCHC 32.7 (32-36) g/dl RDW 13.5 (11.5-14.0) % Plt Count 180 (150-450) K/mm3 MPV 12.7 H (7.5-11.0) fl Gran % 80.1 H (36.0-66.0) % Eos # (Auto) 0.03 (0-0.5) Absolute Lymphs (auto) 1.31 (1.0-4.6) Absolute Monos (auto) 1.08 (0.0-1.3) Lymphocytes % 10.7 L (24.0-44.0) % Monocytes % 8.8 (0.0-12.0) % Eosinophils % 0.2 (0.00-5.0) % Basophils % 0.2 (0.0-0.4) % Absolute Granulocytes 9.76 H (1.4-6.9) Basophils # 0.03 (0-0.4) PT (9.4-12.5) SECONDS INR (0.8-3.0) D-Dimer (215-500) ng/mL Sodium 137 (137-145) mmol/L Potassium 4.4 (3.5-5.1) mmol/L Chloride 102 (98-107) mmol/L Carbon Dioxide 23 (22-30) mmol/L Anion Gap 16.5 H (5-15) MEQ/L BUN 18 (9-20) mg/dL Creatinine 1.19 (0.66-1.25) mg/dL Estimated GFR > 60.0 ML/MIN Glucose 152 H (74-106) mg/dL Lactic Acid (0.4-2.0) Calcium 9.9 (8.4-10.2) mg/dL Magnesium 1.5 L (1.6-2.3) mg/dL Total Bilirubin 1.00 (0.2-1.3) mg/dL AST 22 (17-59) U/L ALT 12 (0-50) U/L Alkaline Phosphatase 59 (38-126) U/L Troponin I (0.000-0.034) ng/mL NT-Pro-B Natriuret Pep 340 (0-1800) pg/mL Serum Total Protein 7.4 (6.3-8.2) g/dL Albumin 4.6 (3.5-5.0) g/dL Amylase 49 (30-110) U/L Lipase 61 (23-300) U/L Influenza Type A Ag (NEGATIVE) Influenza Type B Ag (NEGATIVE) SARS-CoV-2 Ag (Rapid) (NEGATIVE) Group A Strep Antibody (NEGATIVE) - Progress Progress: unchanged Discussed with : Shaun Will see patient in: hospital (full admit) - Departure Departure Disposition: In-patient Admission Clinical Impression: COVID-19 Condition: Fair Critical Care Time: No Referrals: NASRIN ESCALANTE, [Primary Care Provider] - Follow up/PCP as directed
[2021-09-03] MEDS ORDERED: TYLENOL 325 MG PO PRN (11:23)
[2021-09-03] MEDS ORDERED: Zofran 4 MG/2 ML VIAL IV PRN (11:23)
[2021-09-03] MEDS ORDERED: Ativan 2 MG/1 ML VIAL IV PRN (12:39)
[2021-09-03] MEDS ORDERED: Ativan 1 MG PO PRN (12:39)
[2021-09-03] MEDS ORDERED: HYDROCODONE-CHLORPHEN ER SUSP PO PRN (12:39)
[2021-09-03 12:44] LABS: Appearance CLEAR (CLEAR); Bacteria RARE /HPF (NEGATIVE); Bilirubin NEGATIVE (NEGATIVE); Blood SMALL Ery/ul (0-5); Epithelial Cells RARE /HPF (FEW); Glucose NEGATIVE (NEGATIVE); Ketones TRACE (NEGATIVE); Leukocyte Esterase NEGATIVE (NEGATIVE); Mucus SLIGHT /HPF (NEGATIVE); Nitrite NEGATIVE (NEGATIVE); Protein,Urine Dip 30 (Negative); RBC 0-2 /HPF (0-2); Specific Gravity 1.056 (1.005-1.025); Urobilinogen NEGATIVE mg/dL (0-1)
[2021-09-03] MEDS: OLUMIANT PO SCH (13:41)
[2021-09-03] MEDS: DECADRON 10MG INJ. IV SCH (13:41)
[2021-09-03] MEDS ORDERED: REMDESIVIR 200 MG in Sodium Chloride 0.9% 250 ML 250 ML IV ONE (14:00)
--- NOTE | 2021-09-03 17:32 | PCM.HP ---
History of Present Illness - Chief Complaint Chief Complaint: shortness of breath, Positive for COVID History of Present Illness: is a 81 year old male.who presents with a complaint of nausea and vomiting x3. He has had fever he has had weakness body aches coughing for 3 days he was not vaccinated and his COVID symptoms are basically positive. Patient does suffer from some dementia and some of his history was provided by his family per phone. Timing/Duration: day(s) (3) Quality: aching Abdominal Pain Onset Location: generalized abdomen Pain Radiation: no radiation Severity of Pain-Max: mild Severity of Pain-Current: mild - Review of Systems Constitutional: Fever, Chills, Malaise Eyes: No Symptoms Ears, Nose, & Throat: No Symptoms Respiratory: Cough, Short Of Breath Cardiac: No Chest Pain, No Edema, No Syncope Abdominal/Gastrointestinal: No Abdominal Pain, No Nausea, No Vomiting, No Diarrhea Genitourinary Symptoms: No Dysuria Musculoskeletal: No Back Pain, No Neck Pain Skin: No Rash Neurological: No Dizziness, No Focal Weakness, No Sensory Changes Psychological: No Symptoms Endocrine: No Symptoms Hematologic/Lymphatic: No Symptoms Immunological/Allergic: No Symptoms Medications & Allergies Home Medications: Home Medication List Omeprazole Magnesium [Prilosec Otc] 20 mg PO DAILY 03/01/12 [History Confirmed 09/03/21] lisinopriL [Zestril] 20 mg PO DAILY 01/04/15 [History Confirmed 09/03/21] Ergocalciferol (Vitamin D2) [Vitamin D2] 1 ea WEEKLY 09/03/21 [History Confirmed 09/03/21] Fluoxetine HCl 20 mg [Prozac 20 MG] 10 mg DAILY 09/03/21 [History Confirmed 09/03/21] Losartan Potassium 1 ea DAILY 09/03/21 [History Confirmed 09/03/21] Allergies/Adverse Reactions: Allergies Allergy/AdvReac Type Severity Reaction Status Date / Time metronidazole [From Flagyl] Allergy Intermediate Verified 09/03/21 08:32 Metronidazole HCl Allergy Intermediate Verified 09/03/21 08:32 [From Flagyl] - Past Medical History Past Medical History: Yes ENT History: No Pertinent History Cardiac History: High Cholesterol, Other Respiratory History: No Pertinent History Musculoskelatal History: Other GI Medical History: GERD History: No Pertinent History Pyscho-Social History: Anxiety Male Reproductive Disorders: No Pertinent History Comment: 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 - Past Surgical History Past Surgical History: Yes Neuro Surgical History: No Pertinent History Cardiac History: No Pertinent History Respiratory Surgery: No Pertinent History GI Surgical History: Cholecystectomy Genitourinary Surgical Hx: Other Musculskeletal Surgical Hx: No Pertinent History Male Surgical History: No Pertinent History Other Surgical History: MALIGNANT TUMOR REMOVED FROM BLADDER - Social History Smoking Status: Former smoker Exposure to second hand smoke: Yes Alcohol: None Drug Use: none - Physical Exam Vital Signs: Vital Signs - 24 hr Temp Pulse Resp BP Pulse Ox 09/03/21 16:17 99 09/03/21 14:25 97.7 F 74 17 133/83 99 09/03/21 11:23 97.7 F 76 18 133/83 98 09/03/21 11:22 96 09/03/21 11:11 81 18 141/82 96 09/03/21 10:45 72 18 115/78 96 09/03/21 09:41 62 18 181/98 96 09/03/21 08:23 97.1 F 77 18 135/90 97 General Appearance: no apparent distress, alert Neurologic Exam: alert, oriented x 3, cooperative, normal mood/affect, nml cerebellar function, nml station & gait, sensation nml, No motor deficits Eye Exam: PERRL/EOMI, eyes nml inspection Ears, Nose, Throat Exam: normal ENT inspection, TMs normal, pharynx normal, moist mucous membranes Neck Exam: normal inspection, non-tender, supple, full range of motion Respiratory Exam: diminished breath sounds, crackles/rales, rhonchi, wheezing, No respiratory distress Cardiovascular Exam: regular rate/rhythm, normal heart sounds, normal peripheral pulses Gastrointestinal/Abdomen Exam: soft, normal bowel sounds, No tenderness, No mass Back Exam: normal inspection, normal range of motion, No CVA tenderness, No vertebral tenderness Extremity Exam: normal inspection, normal range of motion, pelvis stable Skin Exam: normal color, warm, dry, No rash Lymphatic Exam: No adenopathy Results - Labs Lab/Micro Results: Lab Results-Last 24 Hours 09/03/21 09/03/21 09/03/21 Range/Units 08:25 08:25 08:25 WBC 12.2 H (4.0-10.5) K/mm3 RBC 5.07 (4.1-5.6) M/mm3 Hgb 14.6 (12.5-18.0) gm/dl Hct 44.7 (42-50) % MCV 88.2 (78-100) fl MCH 28.8 (26-32) pg MCHC 32.7 (32-36) g/dl RDW 13.5 (11.5-14.0) % Plt Count 180 (150-450) K/mm3 MPV 12.7 H (7.5-11.0) fl Gran % 80.1 H (36.0-66.0) % Eos # (Auto) 0.03 (0-0.5) Absolute Lymphs (auto) 1.31 (1.0-4.6) Absolute Monos (auto) 1.08 (0.0-1.3) Lymphocytes % 10.7 L (24.0-44.0) % Monocytes % 8.8 (0.0-12.0) % Eosinophils % 0.2 (0.00-5.0) % Basophils % 0.2 (0.0-0.4) % Absolute Granulocytes 9.76 H (1.4-6.9) Basophils # 0.03 (0-0.4) PT 13.2 H (9.4-12.5) SECONDS INR 1.12 (0.8-3.0) D-Dimer 845 H* (215-500) ng/mL Sodium 137 (137-145) mmol/L Potassium 4.4 (3.5-5.1) mmol/L Chloride 102 (98-107) mmol/L Carbon Dioxide 23 (22-30) mmol/L Anion Gap 16.5 H (5-15) MEQ/L BUN 18 (9-20) mg/dL Creatinine 1.19 (0.66-1.25) mg/dL Estimated GFR > 60.0 ML/MIN Glucose 152 H (74-106) mg/dL Lactic Acid (0.4-2.0) Calcium 9.9 (8.4-10.2) mg/dL Magnesium 1.5 L (1.6-2.3) mg/dL Total Bilirubin 1.00 (0.2-1.3) mg/dL AST 22 (17-59) U/L ALT 12 (0-50) U/L Alkaline Phosphatase 59 (38-126) U/L Troponin I (0.000-0.034) ng/mL NT-Pro-B Natriuret Pep 340 (0-1800) pg/mL Serum Total Protein 7.4 (6.3-8.2) g/dL Albumin 4.6 (3.5-5.0) g/dL Amylase 49 (30-110) U/L Lipase 61 (23-300) U/L Urine Color (YELLOW) Urine Appearance (CLEAR) Urine pH (5-6) Ur Specific [place] (1.005-1.025) Urine Protein (Negative) Urine Ketones (NEGATIVE) Urine Blood (0-5) Leno/ul Urine Nitrite (NEGATIVE) Urine Bilirubin (NEGATIVE) Urine Urobilinogen (0-1) mg/dL Ur Leukocyte Esterase (NEGATIVE) Urine WBC (Auto) (0-5) /HPF Urine RBC (Auto) (0-2) /HPF U Epithel Cells (Auto) (FEW) /HPF Urine Bacteria (Auto) (NEGATIVE) /HPF Urine Mucus (Auto) (NEGATIVE) /HPF Urine Culture Reflexed (NO) Urine Glucose (NEGATIVE) mg/dL Influenza Type A Ag (NEGATIVE) Influenza Type B Ag (NEGATIVE) SARS-CoV-2 Ag (Rapid) (NEGATIVE) Group A Strep Antibody (NEGATIVE) 09/03/21 09/03/21 09/03/21 Range/Units 08:25 08:42 09:15 WBC (4.0-10.5) K/mm3 RBC (4.1-5.6) M/mm3 Hgb (12.5-18.0) gm/dl Hct (42-50) % MCV (78-100) fl MCH (26-32) pg MCHC (32-36) g/dl RDW (11.5-14.0) % Plt Count (150-450) K/mm3 MPV (7.5-11.0) fl Gran % (36.0-66.0) % Eos # (Auto) (0-0.5) Absolute Lymphs (auto) (1.0-4.6) Absolute Monos (auto) (0.0-1.3) Lymphocytes % (24.0-44.0) % Monocytes % (0.0-12.0) % Eosinophils % (0.00-5.0) % Basophils % (0.0-0.4) % Absolute Granulocytes (1.4-6.9) Basophils # (0-0.4) PT (9.4-12.5) SECONDS INR (0.8-3.0) D-Dimer (215-500) ng/mL Sodium (137-145) mmol/L Potassium (3.5-5.1) mmol/L Chloride (98-107) mmol/L Carbon Dioxide (22-30) mmol/L Anion Gap (5-15) MEQ/L BUN (9-20) mg/dL Creatinine (0.66-1.25) mg/dL Estimated GFR ML/MIN Glucose (74-106) mg/dL Lactic Acid 1.3 (0.4-2.0) Calcium (8.4-10.2) mg/dL Magnesium (1.6-2.3) mg/dL Total Bilirubin (0.2-1.3) mg/dL AST (17-59) U/L ALT (0-50) U/L Alkaline Phosphatase (38-126) U/L Troponin I < 0.012 (0.000-0.034) ng/mL NT-Pro-B Natriuret Pep (0-1800) pg/mL Serum Total Protein (6.3-8.2) g/dL Albumin (3.5-5.0) g/dL Amylase (30-110) U/L Lipase (23-300) U/L Urine Color (YELLOW) Urine Appearance (CLEAR) Urine pH (5-6) Ur Specific [place] (1.005-1.025) Urine Protein (Negative) Urine Ketones (NEGATIVE) Urine Blood (0-5) Leno/ul Urine Nitrite (NEGATIVE) Urine Bilirubin (NEGATIVE) Urine Urobilinogen (0-1) mg/dL Ur Leukocyte Esterase (NEGATIVE) Urine WBC (Auto) (0-5) /HPF Urine RBC (Auto) (0-2) /HPF U Epithel Cells (Auto) (FEW) /HPF Urine Bacteria (Auto) (NEGATIVE) /HPF Urine Mucus (Auto) (NEGATIVE) /HPF Urine Culture Reflexed (NO) Urine Glucose (NEGATIVE) mg/dL Influenza Type A Ag NEGATIVE (NEGATIVE) Influenza Type B Ag NEGATIVE (NEGATIVE) SARS-CoV-2 Ag (Rapid) (NEGATIVE) Group A Strep Antibody (NEGATIVE) 09/03/21 09/03/21 09/03/21 Range/Units 09:15 09:27 11:24 WBC (4.0-10.5) K/mm3 RBC (4.1-5.6) M/mm3 Hgb (12.5-18.0) gm/dl Hct (42-50) % MCV (78-100) fl MCH (26-32) pg MCHC (32-36) g/dl RDW (11.5-14.0) % Plt Count (150-450) K/mm3 MPV (7.5-11.0) fl Gran % (36.0-66.0) % Eos # (Auto) (0-0.5) Absolute Lymphs (auto) (1.0-4.6) Absolute Monos (auto) (0.0-1.3) Lymphocytes % (24.0-44.0) % Monocytes % (0.0-12.0) % Eosinophils % (0.00-5.0) % Basophils % (0.0-0.4) % Absolute Granulocytes (1.4-6.9) Basophils # (0-0.4) PT (9.4-12.5) SECONDS INR (0.8-3.0) D-Dimer (215-500) ng/mL Sodium (137-145) mmol/L Potassium (3.5-5.1) mmol/L Chloride (98-107) mmol/L Carbon Dioxide (22-30) mmol/L Anion Gap (5-15) MEQ/L BUN (9-20) mg/dL Creatinine (0.66-1.25) mg/dL Estimated GFR ML/MIN Glucose (74-106) mg/dL Lactic Acid (0.4-2.0) Calcium (8.4-10.2) mg/dL Magnesium (1.6-2.3) mg/dL Total Bilirubin (0.2-1.3) mg/dL AST (17-59) U/L ALT (0-50) U/L Alkaline Phosphatase (38-126) U/L Troponin I (0.000-0.034) ng/mL NT-Pro-B Natriuret Pep (0-1800) pg/mL Serum Total Protein (6.3-8.2) g/dL Albumin (3.5-5.0) g/dL Amylase (30-110) U/L Lipase (23-300) U/L Urine Color YELLOW (YELLOW) Urine Appearance CLEAR (CLEAR) Urine pH 5.0 (5-6) Ur Specific [place] 1.056 (1.005-1.025) Urine Protein 30 (Negative) Urine Ketones TRACE (NEGATIVE) Urine Blood SMALL (0-5) Leno/ul Urine Nitrite NEGATIVE (NEGATIVE) Urine Bilirubin NEGATIVE (NEGATIVE) Urine Urobilinogen NEGATIVE (0-1) mg/dL Ur Leukocyte Esterase NEGATIVE (NEGATIVE) Urine WBC (Auto) 3-5 (0-5) /HPF Urine RBC (Auto) 0-2 (0-2) /HPF U Epithel Cells (Auto) RARE (FEW) /HPF Urine Bacteria (Auto) RARE (NEGATIVE) /HPF Urine Mucus (Auto) SLIGHT (NEGATIVE) /HPF Urine Culture Reflexed YES (NO) Urine Glucose NEGATIVE (NEGATIVE) mg/dL Influenza Type A Ag (NEGATIVE) Influenza Type B Ag (NEGATIVE) SARS-CoV-2 Ag (Rapid) POSITIVE A* (NEGATIVE) Group A Strep Antibody NOT DETECTED (NEGATIVE) 09/03/21 09/03/21 Range/Units 11:35 15:25 WBC (4.0-10.5) K/mm3 RBC (4.1-5.6) M/mm3 Hgb (12.5-18.0) gm/dl Hct (42-50) % MCV (78-100) fl MCH (26-32) pg MCHC (32-36) g/dl RDW (11.5-14.0) % Plt Count (150-450) K/mm3 MPV (7.5-11.0) fl Gran % (36.0-66.0) % Eos # (Auto) (0-0.5) Absolute Lymphs (auto) (1.0-4.6) Absolute Monos (auto) (0.0-1.3) Lymphocytes % (24.0-44.0) % Monocytes % (0.0-12.0) % Eosinophils % (0.00-5.0) % Basophils % (0.0-0.4) % Absolute Granulocytes (1.4-6.9) Basophils # (0-0.4) PT (9.4-12.5) SECONDS INR (0.8-3.0) D-Dimer (215-500) ng/mL Sodium (137-145) mmol/L Potassium (3.5-5.1) mmol/L Chloride (98-107) mmol/L Carbon Dioxide (22-30) mmol/L Anion Gap (5-15) MEQ/L BUN (9-20) mg/dL Creatinine (0.66-1.25) mg/dL Estimated GFR ML/MIN Glucose (74-106) mg/dL Lactic Acid (0.4-2.0) Calcium (8.4-10.2) mg/dL Magnesium (1.6-2.3) mg/dL Total Bilirubin (0.2-1.3) mg/dL AST (17-59) U/L ALT (0-50) U/L Alkaline Phosphatase (38-126) U/L Troponin I < 0.012 < 0.012 (0.000-0.034) ng/mL NT-Pro-B Natriuret Pep (0-1800) pg/mL Serum Total Protein (6.3-8.2) g/dL Albumin (3.5-5.0) g/dL Amylase (30-110) U/L Lipase (23-300) U/L Urine Color (YELLOW) Urine Appearance (CLEAR) Urine pH (5-6) Ur Specific [place] (1.005-1.025) Urine Protein (Negative) Urine Ketones (NEGATIVE) Urine Blood (0-5) Leno/ul Urine Nitrite (NEGATIVE) Urine Bilirubin (NEGATIVE) Urine Urobilinogen (0-1) mg/dL Ur Leukocyte Esterase (NEGATIVE) Urine WBC (Auto) (0-5) /HPF Urine RBC (Auto) (0-2) /HPF U Epithel Cells (Auto) (FEW) /HPF Urine Bacteria (Auto) (NEGATIVE) /HPF Urine Mucus (Auto) (NEGATIVE) /HPF Urine Culture Reflexed (NO) Urine Glucose (NEGATIVE) mg/dL Influenza Type A Ag (NEGATIVE) Influenza Type B Ag (NEGATIVE) SARS-CoV-2 Ag (Rapid) (NEGATIVE) Group A Strep Antibody (NEGATIVE) - Radiology Impressions Radiology Exams & Impressions: Radiology Procedures Category Date Time Status CHEST 1 VIEW (PORTABLE) Stat Exams 09/03/21 08:43 Completed CHEST WITH CONTRAST [CT] Stat Exams 09/03/21 09:[address]/CHEST WITH CONTRAST Indication: Cough, nausea, and vomiting. Elevated d-dimer. Multiple contiguous axial images obtained through the chest using 80 cc Isovue 370 contrast and PE protocol. Comparison: August 03, 2020. There is good opacification of the pulmonary arteries to include the lobar and segmental branches. Again no pulmonary embolus. Heart is not enlarged. Aorta is normal in course and caliber. No pathologic mediastinal/hilar lymphadenopathy. Again small hiatal hernia. Lungs again demonstrates minimal bilateral dependent atelectasis with stable 2 medial right base noncalcified micronodules and minimal posterior left lower lobe calcified pleural plaquing. No suspicious pulmonary mass, infiltrate, effusion, or pneumothorax. Bony thorax intact again with mild osteopenia and mild degenerative changes throughout the spine. Limited upper abdomen again demonstrates fatty liver, small left renal cyst, and cholecystectomy clips. Impression: 1. Continued negative pulmonary embolus. No new/acute cardiopulmonary abnormalities. 2. Again incidental bilateral dependent atelectasis, 2 right base noncalcified micronodules, minimal left lower lobe calcified pleural plaquing, small hiatal hernia, fatty liver, and left renal cyst. Assessment/Plan (1) Dehydration Current Visit: Yes Status: Acute Assessment & Plan: Chief Complaint Diagnosis COVID Allergies Allergy/AdvReac Type Severity Reaction Status Date / Time metronidazole [From Flagyl] Allergy Intermediate Verified 09/03/21 08:32 Metronidazole HCl Allergy Intermediate Verified 09/03/21 08:32 [From Flagyl] Vital Signs (Last 24 hours) Temp Pulse Resp BP Pulse Ox 09/03/21 16:17 99 09/03/21 14:25 97.7 F 74 17 133/83 99 09/03/21 11:23 97.7 F 76 18 133/83 98 09/03/21 11:22 96 09/03/21 11:11 81 18 141/82 96 09/03/21 10:45 72 18 115/78 96 09/03/21 09:41 62 18 181/98 96 09/03/21 08:23 97.1 F 77 18 135/90 97 Home Medications Medication Instructions Recorded Confirmed Last Taken Type Ergocalciferol (Vitamin D2) 1 ea WEEKLY 09/03/21 09/03/21 Unknown History [Vitamin D2] Fluoxetine HCl 20 mg [Prozac 20 10 mg DAILY 01/09/03/21 09/02/21 History MG] Losartan Potassium 1 ea DAILY 09/03/21 09/03/21 09/03/21 History Current Medications Generic Name Dose Route Start Last Admin Trade Name Rory PRN Reason Stop Dose Admin Acetaminophen 650 mg 09/03/21 11:23 Acetaminophen 325 Mg Tablet PO 10/03/21 11:22 Q4H PRN PRN PAIN AND/OR FEVER Baricitinib 2 mg 09/03/21 14:00 09/03/21 13:41 Baricitinib 2 Mg Tablet PO 09/16/21 10:01 2 mg DAILY COREY Administration Chlorphenir/Hydrocodone Polistirex 5 ml 09/03/21 12:39 Hydrocodone/Chlorphen P-Stirex 1 Ml Mitzi.Er.12h PO 10/03/21 12:38 [id number] PRN COUGH Dexamethasone Sodium Phosphate 8 mg 09/03/21 14:00 09/03/21 13:41 Dexamethasone Sod Phosphate 10 Mg/Ml IV 09/12/21 10:01 8 mg DAILY COREY Administration Enoxaparin Sodium 40 mg 09/04/21 13:00 Enoxaparin Sodium 40 Mg/0.4 Ml Syringe SQ 10/04/21 12:59 DAILY COREY Sodium Chloride 1,000 mls @ 50 mls/hr 09/03/21 11:30 Sodium Chloride 0.9% 1000 Ml IV 10/03/21 11:29 .Q20H COREY Remdesivir 100 mg/ Sodium 100 mls @ 100 mls/hr 09/04/21 14:00 Chloride IV 09/07/21 14:59 Q24H COREY Lorazepam 1 mg 09/03/21 12:39 Lorazepam 2 Mg/1 Ml 2 Mg Vial IV 10/03/21 12:38 Q4H PRN PRN Anxiety/Sleep Lorazepam 1 mg 09/03/21 12:39 Lorazepam 1 Mg Tablet PO 10/03/21 12:38 Q4H PRN PRN Anxiety/Sleep Ondansetron HCl 4 mg 09/03/21 11:23 Ondansetron Hcl 4 Mg/2 Ml Vial IV 10/03/21 11:22 Q6H PRN PRN NAUSEA/VOMITING Discontinued Medications Generic Name Dose Route Start Last Admin Trade Name Rory PRN Reason Stop Dose Admin Sodium Chloride 1,000 mls @ 999 mls/hr 09/03/21 10:59 09/03/21 12:17 Sodium Chloride 0.9% 1000 Ml IV 09/03/21 11:59 Infused .Q1H1M STA Infusion Sodium Chloride Confirm 09/03/21 11:04 Sodium Chloride 0.9% 1000 Ml Administered 09/03/21 11:05 Dose 1,000 mls @ ud .ROUTE .STK-MED ONE Remdesivir 200 mg/ Sodium 250 mls @ 125 mls/hr 09/03/21 14:00 09/03/21 13:54 Chloride IV 09/03/21 15:59 125 mls/hr ONCE ONE Administration Intake & Output (Last 24 hours) 09/01/21 09/02/21 09/03/21 09/04/21 11:59 11:59 11:59 11:59 Weight 93.1 kg 93.1 kg Microbiology Results (Last 24 hours) 09/03/21 11:24 Clean Catch Midstream Urine Culture - Pending 09/03/21 09:15 Blood Blood Culture Gram Stain - Pending 09/03/21 09:15 Blood Blood Culture - Pending 09/03/21 08:25 Blood Blood Culture Gram Stain - Pending 09/03/21 08:25 Blood Blood Culture - Pending Laboratory Results (Last 24 hours) 09/03/21 09/03/21 09/03/21 15:25 11:35 11:24 WBC RBC Hgb Hct MCV MCH MCHC RDW Plt Count MPV Gran % Eos # (Auto) Absolute Lymphs (auto) Absolute Monos (auto) Lymphocytes % Monocytes % Eosinophils % Basophils % Absolute Granulocytes Basophils # PT INR D-Dimer Sodium Potassium Chloride Carbon Dioxide Anion Gap BUN Creatinine Estimated GFR Glucose Lactic Acid Calcium Magnesium Total Bilirubin AST ALT Alkaline Phosphatase Troponin I < 0.012 < 0.012 NT-Pro-B Natriuret Pep Serum Total Protein Albumin Amylase Lipase Urine Color YELLOW Urine Appearance CLEAR Urine pH 5.0 Ur Specific [place] 1.056 Urine Protein 30 Urine Ketones TRACE Urine Blood SMALL Urine Nitrite NEGATIVE Urine Bilirubin NEGATIVE Urine Urobilinogen NEGATIVE Ur Leukocyte Esterase NEGATIVE Urine WBC (Auto) 3-5 Urine RBC (Auto) 0-2 U Epithel Cells (Auto) RARE Urine Bacteria (Auto) RARE Urine Mucus (Auto) SLIGHT Urine Culture Reflexed YES Urine Glucose NEGATIVE Influenza Type A Ag Influenza Type B Ag SARS-CoV-2 Ag (Rapid) Group A Strep Antibody 09/03/21 09/03/21 09/03/21 09:27 09:15 09:15 WBC RBC Hgb Hct MCV MCH MCHC RDW Plt Count MPV Gran % Eos # (Auto) Absolute Lymphs (auto) Absolute Monos (auto) Lymphocytes % Monocytes % Eosinophils % Basophils % Absolute Granulocytes Basophils # PT INR D-Dimer Sodium Potassium Chloride Carbon Dioxide Anion Gap BUN Creatinine Estimated GFR Glucose Lactic Acid Calcium Magnesium Total Bilirubin AST ALT Alkaline Phosphatase Troponin I NT-Pro-B Natriuret Pep Serum Total Protein Albumin Amylase Lipase Urine Color Urine Appearance Urine pH Ur Specific [place] Urine Protein Urine Ketones Urine Blood Urine Nitrite Urine Bilirubin Urine Urobilinogen Ur Leukocyte Esterase Urine WBC (Auto) Urine RBC (Auto) U Epithel Cells (Auto) Urine Bacteria (Auto) Urine Mucus (Auto) Urine Culture Reflexed Urine Glucose Influenza Type A Ag NEGATIVE Influenza Type B Ag NEGATIVE SARS-CoV-2 Ag (Rapid) POSITIVE A* Group A Strep Antibody NOT DETECTED 09/03/21 09/03/21 09/03/21 08:42 08:25 08:25 WBC RBC Hgb Hct MCV MCH MCHC RDW Plt Count MPV Gran % Eos # (Auto) Absolute Lymphs (auto) Absolute Monos (auto) Lymphocytes % Monocytes % Eosinophils % Basophils % Absolute Granulocytes Basophils # PT 13.2 H INR 1.12 D-Dimer 845 H* Sodium Potassium Chloride Carbon Dioxide Anion Gap BUN Creatinine Estimated GFR Glucose Lactic Acid 1.3 Calcium Magnesium Total Bilirubin AST ALT Alkaline Phosphatase Troponin I < 0.012 NT-Pro-B Natriuret Pep Serum Total Protein Albumin Amylase Lipase Urine Color Urine Appearance Urine pH Ur Specific [place] Urine Protein Urine Ketones Urine Blood Urine Nitrite Urine Bilirubin Urine Urobilinogen Ur Leukocyte Esterase Urine WBC (Auto) Urine RBC (Auto) U Epithel Cells (Auto) Urine Bacteria (Auto) Urine Mucus (Auto) Urine Culture Reflexed Urine Glucose Influenza Type A Ag Influenza Type B Ag SARS-CoV-2 Ag (Rapid) Group A Strep Antibody 09/03/21 09/03/21 08:25 08:25 WBC 12.2 H RBC 5.07 Hgb 14.6 Hct 44.7 MCV 88.2 MCH 28.8 MCHC 32.7 RDW 13.5 Plt Count 180 MPV 12.7 H Gran % 80.1 H Eos # (Auto) 0.03 Absolute Lymphs (auto) 1.31 Absolute Monos (auto) 1.08 Lymphocytes % 10.7 L Monocytes % 8.8 Eosinophils % 0.2 Basophils % 0.2 Absolute Granulocytes 9.76 H Basophils # 0.03 PT INR D-Dimer Sodium 137 Potassium 4.4 Chloride 102 Carbon Dioxide 23 Anion Gap 16.5 H BUN 18 Creatinine 1.19 Estimated GFR > 60.0 Glucose 152 H Lactic Acid Calcium 9.9 Magnesium 1.5 L Total Bilirubin 1.00 AST 22 ALT 12 Alkaline Phosphatase 59 Troponin I NT-Pro-B Natriuret Pep 340 Serum Total Protein 7.4 Albumin 4.6 Amylase 49 Lipase 61 Urine Color Urine Appearance Urine pH Ur Specific [place] Urine Protein Urine Ketones Urine Blood Urine Nitrite Urine Bilirubin Urine Urobilinogen Ur Leukocyte Esterase Urine WBC (Auto) Urine RBC (Auto) U Epithel Cells (Auto) Urine Bacteria (Auto) Urine Mucus (Auto) Urine Culture Reflexed Urine Glucose Influenza Type A Ag Influenza Type B Ag SARS-CoV-2 Ag (Rapid) Group A Strep Antibody Orders (Last 24 hours) Category Date Time Status Bedrest ROUTINE Activity 09/03/21 11:25 Active Code Status Order ROUTINE Care 09/03/21 11:25 Active EKG-ER Only STAT Care 09/03/21 08:42 Completed IV Care Q6H Care 09/03/21 11:25 Active IV Insertion STAT Care 09/03/21 08:42 Completed Intake and Output Q12H Care 09/03/21 11:23 Completed Isolation, Initiate & Maintain Q6H Care 09/03/21 11:23 Active Neuro Checks Q4H Care 09/03/21 11:[address] in Observation ROUTINE Care 09/03/21 11:23 Active Sequential Compression Device Q6H Care 09/03/21 11:23 Completed Vital Signs Q4H Care 09/03/21 11:23 Completed Weight,Daily 0600 Care 09/03/21 11:23 Active Clear Liquid Diet 09/03/21 Lunch Active CHEST 1 VIEW (PORTABLE) Stat Exams 09/03/21 08:43 Completed CHEST WITH CONTRAST [CT] Stat Exams 09/03/21 09:30 Completed AMYLASE Stat Lab 09/03/21 08:25 Completed BLOOD CULTURE Stat Lab 09/03/21 09:15 Received CBC DAILY Lab 09/04/21 05:00 Ordered CBC DAILY Lab 09/05/21 05:00 Ordered CBC DAILY Lab 09/06/21 05:00 Ordered CBC DAILY Lab 09/07/21 05:00 Ordered CBC DAILY Lab 09/08/21 05:00 Ordered CBC DAILY Lab 09/09/21 05:00 Ordered CBC DAILY Lab 09/10/21 05:00 Ordered CBC DAILY Lab 09/11/21 05:00 Ordered CBC DAILY Lab 09/12/21 05:00 Ordered CBC DAILY Lab 09/13/21 05:00 Ordered CBC W DIFF AM.LAB Lab 09/04/21 04:00 Ordered CBC W DIFF Stat Lab 09/03/21 08:25 Completed CMP AM.LAB Lab 09/04/21 04:00 Ordered CMP Stat Lab 09/03/21 08:25 Completed COVID AG-BINAX NOW RAPID TEST Stat Lab 09/03/21 09:27 Completed CULTURE,URINE Stat Lab 09/03/21 11:24 Received D-DIMER QUANTITATIVE AM.LAB Lab 09/04/21 04:00 Ordered D-DIMER QUANTITATIVE DAILY Lab 09/04/21 05:00 Ordered D-DIMER QUANTITATIVE DAILY Lab 09/05/21 05:00 Ordered D-DIMER QUANTITATIVE DAILY Lab 09/06/21 05:00 Ordered D-DIMER QUANTITATIVE DAILY Lab 09/07/21 05:00 Ordered D-DIMER QUANTITATIVE DAILY Lab 09/08/21 05:00 Ordered D-DIMER QUANTITATIVE DAILY Lab 09/09/21 05:00 Ordered D-DIMER QUANTITATIVE DAILY Lab 09/10/21 05:00 Ordered D-DIMER QUANTITATIVE DAILY Lab 09/11/21 05:00 Ordered D-DIMER QUANTITATIVE DAILY Lab 09/12/21 05:00 Ordered D-DIMER QUANTITATIVE DAILY Lab 09/13/21 05:00 Ordered D-DIMER QUANTITATIVE Stat Lab 09/03/21 08:25 Completed Group A Strep Stat Lab 09/03/21 09:15 Completed INFLUENZA A+B MEL Stat Lab 09/03/21 09:15 Completed LIPASE Stat Lab 09/03/21 08:25 Completed Lactic Acid AM.LAB Lab 09/04/21 04:00 Ordered Lactic Acid Stat Lab 09/03/21 08:42 Completed MAGNESIUM Stat Lab 09/03/21 08:25 Completed NT PRO BNP AM.LAB Lab 09/04/21 04:00 Ordered NT PRO BNP Stat Lab 09/03/21 08:25 Completed PROCALCITONIN Stat Lab 09/03/21 Ordered PROTIME WITH INR AM.LAB Lab 09/04/21 04:00 Ordered PROTIME WITH INR Stat Lab 09/03/21 08:25 Completed TROPONIN Q3H Lab 09/03/21 08:25 Completed TROPONIN Q3H Lab 09/03/21 11:35 Completed TROPONIN Q3H Lab 09/03/21 15:25 Completed TROPONIN Q3H Lab 09/03/21 17:45 Ordered TROPONIN Q3H Lab 09/03/21 20:45 Ordered UA W/RFX UR CULTURE Stat Lab 09/03/21 11:24 Completed Acetaminophen 325 mg [Tylenol 325 mg] Med 09/03/21 11:23 Active 650 mg PO Q4H PRN PRN Baricitinib [Olumiant] Med 09/03/21 14:00 Active 2 mg PO DAILY Dexamethasone Sod Phosphate [Decadron 10Mg Inj.] Med 09/03/21 14:00 Active 8 mg IV DAILY Enoxaparin Sodium [Enoxaparin Sodium] Med 09/04/21 13:00 Active 40 mg SQ DAILY Hydrocodone/Chlorphen P-Stirex [Hydrocodone-Chlorphen Med 09/03/21 12:39 Active ER Susp] 5 ml PO [id number] PRN Lorazepam 1 mg [Ativan 1 MG] Med 09/03/21 12:39 Active 1 mg PO Q4H PRN PRN Lorazepam 2 mg/1 ml [Ativan 2 MG/1 ML VIAL] Med 09/03/21 12:39 Active 1 mg IV Q4H PRN PRN NaCl 0.9% 1000 ml [Sodium Chloride 0.9% 1000 ML] 1,000 Med 09/03/21 11:04 Discontinued ml .ROUTE UD NaCl 0.9% 1000 ml [Sodium Chloride 0.9% 1000 ML] 1,000 Med 09/03/21 11:30 Active ml IV 50 mls/hr NaCl 0.9% 1000 ml [Sodium Chloride 0.9% 1000 ML] 1,000 Med 09/03/21 10:59 Discontinued ml IV 999 mls/hr Ondansetron HCl 4 mg/2 ml [Zofran 4 MG/2 ML VIAL] Med 09/03/21 11:23 Active 4 mg IV Q6H PRN PRN Remdesivir 100 mg Med 09/04/21 14:00 Active NaCl 0.9% 100Ml [Sodium Chloride 0.9% 100 ML BAG] 100 ml IV Q24H Remdesivir 200 mg Med 09/03/21 14:00 Discontinued NaCl 0.9% 250 ml [Sodium Chloride 0.9% 250 ML] 250 ml IV ONCE Pulse Oximetry CONTINUOUS RT 09/03/21 16:17 Active Respiratory Therapy Consult ROUTINE RT 09/03/21 11:23 Completed Transfer Order Routine Transfer 09/03/21 Completed Code(s): E86.0 - DEHYDRATION (2) COVID-19 Current Visit: Yes Status: Acute Code(s): U07.1 - COVID-19 (3) Generalized weakness Current Visit: Yes Status: Acute Code(s): R53.1 - WEAKNESS
[2021-09-03] MEDS: Sodium Chloride 0.9% 1000 ML 1,000 ML IV SCH (19:41)
[2021-09-04 06:07] LABS: Absolute Neutrophil Ct (ANC) 6.44 (1.4-6.9); Basophil (Absolute #) 0.01 (0-0.4); Eosinophil % 0.2 % (0.00-5.0); Eosinophil (Absolute #) 0.02 (0-0.5); Hematocrit 40.1 % (42-50); Hemoglobin 13.2 gm/dl (12.5-18.0); Lymphocyte (Absolute #) 1.12 (1.0-4.6); Lymphocytes % 13.5 % (24.0-44.0); Mean Cell Volume 89.3 fl (78-100); Mean Corpuscular Hemoglobin 29.4 pg (26-32); Mean Corpuscular Hgb Concent. 32.9 g/dl (32-36); Mean Platelet Volume 12.3 fl (7.5-11.0); Monocyte (Absolute #) 0.68 (0.0-1.3); Monocytes % 8.2 % (0.0-12.0); Platelet Count 147 K/mm3 (150-450); Red Blood Count 4.49 M/mm3 (4.1-5.6); Red Cell Distribution Width 13.1 % (11.5-14.0); White Blood Count 8.3 K/mm3 (4.0-10.5)
[2021-09-04 06:38] LABS: INR 1.13 (0.8-3.0); PROTIME 13.3 SECONDS (9.4-12.5)
[2021-09-04 06:49] LABS: ALKALINE PHOSPHATASE 48 U/L (38-126); BLOOD UREA NITROGEN 19 mg/dL (9-20); CHLORIDE 105 mmol/L (98-107); Calcium 9.2 mg/dL (8.4-10.2); Carbon Dioxide 22 mmol/L (22-30); Creatinine 1 1.09 mg/dL (0.66-1.25); EST GLOMERULAR FILTRATION RATE > 60.0 ML/MIN; Glucose 119 mg/dL (74-106); NT PRO BNP 319 pg/mL (0-1800); Potassium 4.1 mmol/L (3.5-5.1); SGOT/AST 24 U/L (17-59); SGPT/ALT 11 U/L (0-50); SODIUM 137 mmol/L (137-145)
[2021-09-04] MEDS: Sodium Chloride 0.9% 1000 ML 1,000 ML IV SCH (07:12)
[2021-09-04 07:46] VITALS: BP 140/92; PULSE 90; O2SAT 100
[2021-09-04] MEDS: DECADRON 10MG INJ. IV SCH (08:56)
[2021-09-04] MEDS: OLUMIANT PO SCH (08:56)
[2021-09-04] MEDS ORDERED: ENOXAPARIN SODIUM SQ SCH (13:00)
[2021-09-04] MEDS ORDERED: REMDESIVIR 100 MG in Sodium Chloride 0.9% 100 ML BAG 100 ML IV SCH (14:00)
== END 2021-09-04 10:16 | disposition home or self-care (01) ==
LOC: ED 08:22 → MED SURG 11:50 → INTOOBSV 11:50
PROVIDERS: ADMIT General Practice; ATTEND Family Medicine
DX: U07.1 COVID-19 (principal); R53.1 Weakness; E86.0 Dehydration; F03.90 Unspecified dementia, unspecified severity, without behavioral disturbance, psychotic disturbance, mood disturbance, and anxiety; E78.5 Hyperlipidemia, unspecified; Z79.899 Other long term (current) drug therapy
CPT/HCPCS: 36000; 36415; 71045; 71260; 80053; 81001; 82150; 83605; 83690; 83735; 83880; 84145; 84484; 85025; 85379; 85610; 87040; 87086; 87400; 87651; 93005; 93268; 94762; 99000; 99285; J0248; J1100; G0378

== ENCOUNTER 2022-03-14 05:58 | Day surgery (SDC) | payer MEDICARE ==
[2022-03-14] MEDS ORDERED: Lactated Ringers 1,000 ML IV SCH (06:00)
[2022-03-14 06:35] LABS: ALBUMIN 4.5 g/dL (3.5-5.0); ANION GAP 15.8 MEQ/L (5-15); BILIRUBIN,TOTAL 0.8 mg/dL (0.2-1.3); Creatinine 1 1.28 mg/dL (0.66-1.25); EST GLOMERULAR FILTRATION RATE 57.6 ML/MIN; Potassium 3.9 mmol/L (3.5-5.1); Total Protein 7.8 g/dL (6.3-8.2)
[2022-03-14] MEDS ORDERED: Xylocaine-Mpf 2% 5 Ml Vial ONE (07:33)
[2022-03-14] MEDS ORDERED: DIPRIVAN 200 MG/20 ML IV ONE (07:33)
[2022-03-14] MEDS ORDERED: ATROPINE SULFATE 1MG ONE (07:49)
[2022-03-14 08:33] VITALS: BP 130/86
[2022-03-14 08:38] VITALS: PULSE 68; O2SAT 93
--- NOTE | 2022-03-14 13:09 | OP ---
SURGERY DATE/TIME: 03/14/2022 0731 PREOPERATIVE DIAGNOSIS: Positive Cologuard. POSTOPERATIVE DIAGNOSIS: Normal colon. PROCEDURE: Colonoscopy. SURGEON: Dr. Cash Morton. ANESTHESIA: MAC. Medications given by anesthesia department. HISTORY: The patient is a 81-year-old white male patient presenting now for colonoscopic evaluation. He apparently had a positive Cologuard test. He has never had a colonoscopy before. The patient was felt the need to have endoscopic evaluation. He was appraised of the risks of the procedure including the risk of perforation, phlebitis, untoward reaction to medication, bleeding and missed lesions. The patient verbalized his understanding and desired to have the procedure performed. DESCRIPTION OF PROCEDURE: The patient was given the medications by the anesthesia department. He had continuous pulse oximetry, ECG monitoring, intermittent blood pressure monitoring during the examination. The patient was placed in the left lateral decubitus position. A digital rectal examination was performed and revealed normal anal sphincter tone and no masses. The flexible Olympus pediatric colonoscope was used to intubate the rectum. A view of the colon was developed sequentially to the cecum. Upon insertion and withdrawal, including a retroflex view in the rectum, no mucosal lesions were encountered. The scope was removed from the patient who tolerated the procedure well and was sent back to OP recovery in good condition. The prep was noted to be fair to good.
== END 2022-03-14 08:51 | disposition home or self-care (01) ==
LOC: SDC 05:58
PROVIDERS: ATTEND Family Medicine
DX: R19.5 Other fecal abnormalities (principal); I10 Essential (primary) hypertension; R00.1 Bradycardia, unspecified; E11.9 Type 2 diabetes mellitus without complications
CPT/HCPCS: 36415; 80053; 93005; 99100; J0461; J2704

== ENCOUNTER 2023-05-31 11:26 | Emergency (ER) | payer MEDICARE ==
--- NOTE | 2023-05-31 11:35 | ERPHSYRPT ---
- History of Present Illness Time Seen by Provider: 05/31/23 11:35 Source: patient Exam Limitations: no limitations Physician History: This is an 82-year-old white male patient of Dr. Morton who fell approximately 2 to 3 weeks ago hitting his head and the right side. For the last 2 weeks has had a headache. The headache is in the right frontal area. Patient is on Eliquis. He has a history of arrhythmia, hypertension, gastroesophageal reflux disease and hyperlipidemia. Patient denies chest pain. Patient denies neck pain. Patient denies shortness of breath. He has no abdominal pain. He has no pain in his extremities. Timing/Duration: week(s) (2 to 3 weeks ago) Quality: aching Head Pain Location: frontal (Right side) Severity of Pain-Max: mild Severity of Pain-Current: mild Recent Head Trauma: head trauma > 24 hrs ago Associated Symptoms: No dizziness, No light-headedness, No loss of consciousness, No nausea/vomiting, No neck pain, No numbness in legs/feet, No seizures, No vision changes, No weakness Previous symptoms: no prior history, no recent treatment Allergies/Adverse Reactions: metronidazole [From Flagyl] Allergy (Intermediate, Verified 03/14/22 06:11) Metronidazole HCl [From Flagyl] Allergy (Intermediate, Verified 03/14/22 06:11) Home Medications: Omeprazole Magnesium [Prilosec Otc] 20 mg PO DAILY 03/01/12 [History] Ergocalciferol (Vitamin D2) [Vitamin D2] 1 ea WEEKLY 09/03/21 [History] Fluoxetine HCl 20 mg [Prozac 20 MG] 20 mg PO DAILY 09/03/21 [History] Aspirin [Aspirin EC] 81 mg PO DAILY 05/31/23 [History] Famotidine [Pepcid] 20 mg PO DAILY 05/31/23 [History] Simvastatin 20Mg [Zocor 20Mg] 20 mg PO DAILY 05/31/23 [History] Hx Tetanus, Diphtheria Vaccination/Date Given: No Hx Influenza Vaccination/Date Given: No Hx Pneumococcal Vaccination/Date Given: No Travel Risk - International Travel Have you traveled outside of the country in past 3 weeks: No - Coronavirus Screening Are you exhibiting any of the following symptoms?: No Close contact with a COVID-19 positive Pt in past 14-21 Days: No - Vaccine Status Have you recieved a Covid-19 vaccination: No - Review of Systems Constitutional: No Symptoms Eyes: No Symptoms Ears, Nose, & Throat: No Symptoms Respiratory: No Symptoms Cardiac: No Symptoms Abdominal/Gastrointestinal: No Symptoms Genitourinary Symptoms: No Symptoms Musculoskeletal: No Symptoms Skin: No Symptoms Neurological: Headache (Right frontal region) Psychological: No Symptoms Endocrine: No Symptoms Hematologic/Lymphatic: No Symptoms Immunological/Allergic: No Symptoms All Other Systems: Reviewed and Negative - Past Medical History Pertinent Past Medical History: Yes Neurological History: No Pertinent History ENT History: No Pertinent History Cardiac History: Arrhythmia, High Cholesterol, Hypertension Respiratory History: Other Endocrine Medical History: No Pertinent History Musculoskeletal History: No Pertinent History GI Medical History: GERD History: Bladder Cancer Psycho-Social History: Depression Male Reproductive Disorders: No Pertinent History Other Medical History: Former cigar smoker. quit in 1999. - Past Surgical History Past Surgical History: Yes Neuro Surgical History: No Pertinent History Cardiac: No Pertinent History Respiratory: No Pertinent History Gastrointestinal: Cholecystectomy Genitourinary: Other Musculoskeletal: No Pertinent History Male Surgical History: No Pertinent History Other Surgical History: Bladder tumor removed. - Social History Smoking Status: Former smoker Exposure to second hand smoke: No Drug Use: none Patient Lives Alone: No - Nursing Vital Signs Nursing Vital Signs: Initial Vital Signs Pulse Rate 63 05/31/23 11:35 Respiratory Rate 14 05/31/23 11:35 Blood Pressure 162/83 05/31/23 11:35 O2 Sat by Pulse Oximetry 99 05/31/23 11:35 Pain Scale Pain Intensity 0 - Physical Exam General Appearance: no apparent distress, alert, anxiety Eye Exam: PERRL/EOMI, eyes nml inspection Ears, Nose, Throat Exam: normal ENT inspection, moist mucous membranes Neck Exam: normal inspection, non-tender, supple, full range of motion Respiratory Exam: normal breath sounds, lungs clear, airway intact, No chest tenderness, No respiratory distress Cardiovascular Exam: regular rate/rhythm, normal heart sounds, normal peripheral pulses Gastrointestinal/Abdominal Exam: soft, normal bowel sounds, No tenderness Back Exam: normal inspection, normal range of motion, No CVA tenderness, No vertebral tenderness Extremity Exam: normal inspection, normal range of motion, pelvis stable Mental Status Exam: alert, oriented x 3, cooperative spiral winder Exam: normal hearing, normal speech, PERRL Coordination/Gait Exam: normal finger to nose, normal gait, normal cerebellar function Motor/Sensory Exam: no motor deficit, no sensory deficit, no pronator drift Skin Exam: normal color, warm, dry Lymphatic Exam: No adenopathy SpO2 Interpretation: normal O2 Delivery: Room Air - Course Nursing assessment & vital signs reviewed: Yes Ordered Tests: Active Orders 24 hr Category Date Time Status HEAD WITHOUT CONTRAST [CT] Stat Exams 05/31/23 11:49 Taken - Progress Progress: improved, re-examined Air Movement: good Progress Note: 05/31/23 12:44 This patient's medical issue is 1 of low complexity. Level complex in the work- up performed is based on review of the patient's past medical history, review of the patient's medication list, review the patient drug allergy list, history present illness and physical findings on examination. The work-up in this patient includes a CT scan of the head. The CT scan of the head was interpreted by the radiologist and I reviewed the impression. When compared to a CT scan of 07/02/2021 there continues to be a nonacute senile brain. However there is a remote lacunar infarct of the left cerebellum that was not present on the comparison CT scan. Blood Culture(s) Obtained: No Antibiotics given: No Counseled pt/family regarding: diagnosis, need for follow-up, rad results Medical Desision Making - Independent Historian Additional History obtained from: Child, Family - Diagnostic Testing Diagnostic test were ordered, analyzed, and reviewed by me: Yes Radiological Interpretation: Reviewed by me, Teleradiologist Report - Risk of complications Low Risk: Low risk of morbidity from additional dx testing or treatment - Departure Departure Disposition: Home Clinical Impression: Post-concussion headache Condition: Stable Critical Care Time: No Referrals: FABIO MORTON [Primary Care Provider] - Follow up/PCP as directed Additional Instructions: Take your medication as prescribed. Use Tylenol for headache control. Call your primary care provider today, 05/31/2023, to make arranges for further evaluation and management.
[2023-05-31 11:41] VITALS: TEMP 97
[2023-05-31 13:17] VITALS: BP 112/65; PULSE 64; RESP 16; O2SAT 96
--- NOTE | 2023-05-31 13:54 | XRAY ---
Indication: Headache. Multiple contiguous axial images obtained through the head without contrast. Comparison: July 02, 2021 Again age-appropriate global atrophy, mild periventricular degenerative micro-ischemia, and remote lacunar infarct left cerebellum. No acute intracranial hemorrhage, abnormal extra-axial fluid collection, or mass effect. Fourth ventricle is midline without hydrocephalus. Bony calvarium intact. Visualized paranasal sinuses and mastoid air cells are clear. 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
== END 2023-05-31 13:17 | disposition home or self-care (01) ==
LOC: ED 11:26
DX: G44.309 Post-traumatic headache, unspecified, not intractable (principal); I10 Essential (primary) hypertension; E78.5 Hyperlipidemia, unspecified; Z79.01 Long term (current) use of anticoagulants; Z79.899 Other long term (current) drug therapy; Z28.310 Unvaccinated for COVID-19
CPT/HCPCS: 70450; 99283

== ENCOUNTER 2023-08-02 12:16 | Emergency (ER) | payer MEDICARE ==
--- NOTE | 2023-08-02 12:22 | ERPHSYRPT ---
- History of Present Illness Time Seen by Provider: 08/02/23 12:22 Historian: patient, EMS Exam Limitations: no limitations Physician History: This is an 83-year-old white male patient of Dr. Eyl who is a poor historian and independent, additional history was provided by the patient's spouse as well as the paramedics. Patient, per patient's spouse, went to bed feeling okay. However in the morning he had an episode of vomiting. He then had a repeat, more significant orange vomitus with associated abdominal pain. Patient's spouse contacted the paramedics who brought him into the emergency department. Patient's spouse and patient deny chest pain, denies shortness of breath, denies fever, denies chills, denies diarrhea. There has been no known exposure to individuals with similar symptoms. Patient has a history of gastroesophageal reflux disease, hyperlipidemia, depression, arrhythmias (on Eliquis) and hypertension. Timing/Duration: today, worse Quality: aching, cramping Abdominal Pain Onset Location: generalized abdomen Pain Radiation: no radiation Severity of Pain-Max: moderate Severity of Pain-Current: mild Modifying Factors: Improves With: vomiting Associated Symptoms: loss of appetite, nausea, vomiting, No chest pain, No diarrhea, No fever/chills, No shortness of breath Previous symptoms: no prior history Allergies/Adverse Reactions: metronidazole [From Flagyl] Allergy (Intermediate, Verified 08/02/23 12:20) Metronidazole HCl [From Flagyl] Allergy (Intermediate, Verified 08/02/23 12:20) Home Medications: Fluoxetine HCl 20 mg [Prozac 20 MG] 20 mg PO DAILY 09/03/21 [History] Aspirin [Aspirin EC] 81 mg PO DAILY 05/31/23 [History] Famotidine [Pepcid] 20 mg PO BID 05/31/23 [History] Simvastatin 20Mg [Zocor 20Mg] 20 mg PO DAILY 05/31/23 [History] Cyanocobalamin (Vitamin B-12) [Vitamin B12] 1,000 mcg PO DAILY 08/02/23 [History] Metoprolol Succinate 25 mg Xl* [Toprol-Xl 25MG Tablets] 1 tab PO DAILY 08/02/23 [History] Tamsulosin HCl 0.4 mg [Flomax 0.4 MG] 1 cap PO DAILY 08/02/23 [History] Hx Tetanus, Diphtheria Vaccination/Date Given: No Hx Influenza Vaccination/Date Given: No Hx Pneumococcal Vaccination/Date Given: No Travel Risk - International Travel Have you traveled outside of the country in past 3 weeks: No - Coronavirus Screening Symptoms: Fever, Vomiting/Diarrhea Close contact with a COVID-19 positive Pt in past 14-21 Days: No - Vaccine Status Have you recieved a Covid-19 vaccination: No - Review of Systems Constitutional: No Symptoms Eyes: No Symptoms Ears, Nose, & Throat: No Symptoms Respiratory: No Symptoms Cardiac: No Symptoms Abdominal/Gastrointestinal: Abdominal Pain, Vomiting, Appetite Changes Genitourinary Symptoms: No Symptoms Musculoskeletal: No Symptoms Skin: No Symptoms Neurological: No Symptoms Psychological: No Symptoms Endocrine: No Symptoms Hematologic/Lymphatic: No Symptoms Immunological/Allergic: No Symptoms All Other Systems: Reviewed and Negative - Past Medical History Pertinent Past Medical History: Yes Neurological History: No Pertinent History ENT History: No Pertinent History Cardiac History: Arrhythmia, High Cholesterol, Hypertension Respiratory History: Other Endocrine Medical History: No Pertinent History Musculoskeletal History: No Pertinent History GI Medical History: GERD History: Bladder Cancer Psycho-Social History: Depression Male Reproductive Disorders: No Pertinent History Other Medical History: Former cigar smoker. quit in 1999. - Past Surgical History Past Surgical History: Yes Neuro Surgical History: No Pertinent History Cardiac: No Pertinent History Respiratory: No Pertinent History Gastrointestinal: Cholecystectomy Genitourinary: Other Musculoskeletal: No Pertinent History Male Surgical History: No Pertinent History Other Surgical History: Bladder tumor removed. - Social History Smoking Status: Former smoker Exposure to second hand smoke: No Drug Use: none Patient Lives Alone: No - Nursing Vital Signs Nursing Vital Signs: Initial Vital Signs Temperature 98.3 F 08/02/23 12:16 Pulse Rate 69 08/02/23 12:16 Respiratory Rate 21 08/02/23 12:16 Blood Pressure 144/84 08/02/23 12:16 O2 Sat by Pulse Oximetry 94 L 08/02/23 12:16 Pain Scale Pain Intensity 0 - Physical Exam General Appearance: no apparent distress, alert, anxiety Eye Exam: PERRL/EOMI, eyes nml inspection Ears, Nose, Throat Exam: normal ENT inspection, moist mucous membranes Neck Exam: normal inspection, non-tender, supple, full range of motion Respiratory Exam: normal breath sounds, lungs clear, airway intact, No chest tenderness, No respiratory distress Cardiovascular Exam: regular rate/rhythm, normal heart sounds, normal peripheral pulses Gastrointestinal/Abdomen Exam: soft, normal bowel sounds, tenderness (Generalized), guarding (Mild, generalized) Rectal Exam: not done Back Exam: normal inspection, normal range of motion, No CVA tenderness, No vertebral tenderness Extremity Exam: normal inspection, normal range of motion, pelvis stable Neurologic Exam: alert, oriented x 3, cooperative, cut off saw tender metal II-XII nml as tested, normal mood/affect, sensation nml Skin Exam: normal color, warm, dry Lymphatic Exam: No adenopathy SpO2 Interpretation: normal O2 Delivery: Room Air - Course Nursing assessment & vital signs reviewed: Yes EKG Interpreted by Me: RATE (80), Sinus Rhythm, NORMAL AXIS, NORMAL INTERVALS, NORMAL QRS, NORMAL ST-T, Other (No acute ischemic changes on today's twelve-lead EKG.) Ordered Tests: Active Orders 24 hr Category Date Time Status EKG-ER Only STAT Care 08/02/23 12:45 Active IV Insertion STAT Care 08/02/23 12:45 Active ABDOMEN AND PELVIS W/0 CONTRAS [CT] Stat Exams 08/02/23 12:45 Completed AMYLASE Stat Lab 08/02/23 13:00 Completed CBC W DIFF Stat Lab 08/02/23 13:00 Completed CMP Stat Lab 08/02/23 13:00 Completed LIPASE Stat Lab 08/02/23 13:00 Completed MONO SCREEN Stat Lab 08/02/23 13:00 Completed TROPONIN Q4H Lab 08/02/23 13:00 Completed TROPONIN Q4H Lab 08/02/23 16:45 Ordered TROPONIN Q4H Lab 08/02/23 20:45 Ordered UA W/RFX UR CULTURE Stat Lab 08/02/23 12:45 Ordered Medication Summary Generic Name Dose Route Start Last Admin Trade Name Freq PRN Reason Stop Dose Admin Sodium Chloride 1,000 mls @ 250 mls/hr 08/02/23 12:45 08/02/23 13:35 Sodium Chloride 0.9% 1000 Ml IV 09/01/23 12:44 250 mls/hr .Q4H COREY Administration Discontinued Medications Generic Name Dose Route Start Last Admin Trade Name Freq PRN Reason Stop Dose Admin Ondansetron HCl 4 mg 08/02/23 12:45 08/02/23 13:35 Ondansetron Hcl 4 Mg/2 Ml Vial IV 08/02/23 12:46 4 mg STAT ONE Administration Ondansetron HCl Confirm 08/02/23 13:31 Ondansetron Hcl 4 Mg/2 Ml Vial Administered 08/02/23 13:32 Dose 4 mg .ROUTE .STK-MED ONE Pantoprazole Sodium 40 mg 08/02/23 12:45 08/02/23 13:35 Pantoprazole 40 Mg Vial IV 08/02/23 12:46 40 mg STAT ONE Administration Pantoprazole Sodium Confirm 08/02/23 13:31 Pantoprazole 40 Mg Vial Administered 08/02/23 13:32 Dose 40 mg IV .STK-MED ONE Lab/Rad Data: Laboratory Result Diagrams 08/02/23 13:00 08/02/23 13:00 Laboratory Results 08/02/23 08/02/23 08/02/23 Range/Units 13:00 13:00 13:00 WBC (4.0-10.5) x10^3/uL RBC (4.1-5.6) x10^6/uL Hgb (12.5-18.0) g/dL Hct (42-50) % MCV (78-100) fL MCH (26-32) pg MCHC (32-36) g/dL RDW (11.5-14.0) % Plt Count (150-450) x10^3/uL MPV (7.5-11.0) fL Gran % (36.0-66.0) % Immature Gran % (Auto) (0.00-0.4) % Nucleat RBC Rel Count (0.00-0.1) % Eos # (Auto) (0-0.5) x10^3/uL Immature Gran # (Auto) (0.00-0.03) x10^3u/L Absolute Lymphs (auto) (1.0-4.6) x10^3/uL Absolute Monos (auto) (0.0-1.3) x10^3/uL Absolute Nucleated RBC (0.00-0.01) x10^3u/L Lymphocytes % (24.0-44.0) % Monocytes % (0.0-12.0) % Eosinophils % (0.00-5.0) % Basophils % (0.0-0.4) % Absolute Granulocytes (1.4-6.9) x10^3/uL Basophils # (0-0.4) x10^3/uL Sodium 138 (137-145) mmol/L Potassium 4.6 (3.5-5.1) mmol/L Chloride 104 (98-107) mmol/L Carbon Dioxide 23 (22-30) mmol/L Anion Gap 15.2 H (5-15) MEQ/L BUN 23 H (9-20) mg/dL Creatinine 1.32 H (0.66-1.25) mg/dL Estimated GFR 54.2 ML/MIN Glucose 147 H (74-106) mg/dL Calcium 9.9 (8.4-10.2) mg/dL Total Bilirubin 0.80 (0.2-1.3) mg/dL AST 23 (17-59) U/L ALT 8 (0-50) U/L Alkaline Phosphatase 51 (38-126) U/L Troponin I 0.131 H* (0.000-0.034) ng/mL Serum Total Protein 7.7 (6.3-8.2) g/dL Albumin 4.5 (3.5-5.0) g/dL Amylase 90 (30-110) U/L Lipase 41 (23-300) U/L Monoscreen NEGATIVE (NEGATIVE) Influenza Type A Ag NEGATIVE (NEGATIVE) Influenza Type B Ag NEGATIVE (NEGATIVE) RSV (PCR) NEGATIVE (NEGATIVE) SARS-CoV-2 (PCR) NEGATIVE (NEGATIVE) Slides for Path Review 08/02/23 Range/Units 13:00 WBC 8.5 (4.0-10.5) x10^3/uL RBC 5.02 (4.1-5.6) x10^6/uL Hgb 14.0 (12.5-18.0) g/dL Hct 43.4 (42-50) % MCV 86.5 (78-100) fL MCH 27.9 (26-32) pg MCHC 32.3 (32-36) g/dL RDW 13.1 (11.5-14.0) % Plt Count 144 L (150-450) x10^3/uL MPV 11.7 H (7.5-11.0) fL Gran % 79.9 H (36.0-66.0) % Immature Gran % (Auto) 0.4 (0.00-0.4) % Nucleat RBC Rel Count 0.0 (0.00-0.1) % Eos # (Auto) 0.02 (0-0.5) x10^3/uL Immature Gran # (Auto) 0.03 (0.00-0.03) x10^3u/L Absolute Lymphs (auto) 1.17 (1.0-4.6) x10^3/uL Absolute Monos (auto) 0.44 (0.0-1.3) x10^3/uL Absolute Nucleated RBC 0.00 (0.00-0.01) x10^3u/L Lymphocytes % 13.8 L (24.0-44.0) % Monocytes % 5.2 (0.0-12.0) % Eosinophils % 0.2 (0.00-5.0) % Basophils % 0.5 (0.0-0.4) % Absolute Granulocytes 6.77 (1.4-6.9) x10^3/uL Basophils # 0.04 (0-0.4) x10^3/uL Sodium (137-145) mmol/L Potassium (3.5-5.1) mmol/L Chloride (98-107) mmol/L Carbon Dioxide (22-30) mmol/L Anion Gap (5-15) MEQ/L BUN (9-20) mg/dL Creatinine (0.66-1.25) mg/dL Estimated GFR ML/MIN Glucose (74-106) mg/dL Calcium (8.4-10.2) mg/dL Total Bilirubin (0.2-1.3) mg/dL AST (17-59) U/L ALT (0-50) U/L Alkaline Phosphatase (38-126) U/L Troponin I (0.000-0.034) ng/mL Serum Total Protein (6.3-8.2) g/dL Albumin (3.5-5.0) g/dL Amylase (30-110) U/L Lipase (23-300) U/L Monoscreen (NEGATIVE) Influenza Type A Ag (NEGATIVE) Influenza Type B Ag (NEGATIVE) RSV (PCR) (NEGATIVE) SARS-CoV-2 (PCR) (NEGATIVE) Slides for Path Review YES - Progress Progress: improved, pain not gone completely, re-examined Progress Note: 08/02/23 13:25 This patient's medical issue is 1 of moderate complexity. The level complexity in the workup performed is based on review of the patient's past medical history, review of the patient's medication list, review of the patient's drug allergy list, history of present illness and physical findings on examination. The workup in this patient includes placement of an intravenous line, infusion of normal saline solution, infusion of Protonix intravenously, infusion of Zofran intravenously, CBC, CMP, amylase, lipase, urinalysis, monotest, viral swabs, twelve-lead EKG, troponin level, BNP, CT scan of the abdomen pelvis without contrast. 08/02/23 14:39 CT scan of the abdomen pelvis without contrast was interpreted by the radiologist and I reviewed the impression. The impression is new hydronephrotic right kidney with renal edema and perinephric fluid favoring high-grade obstructive uropathy. Another etiology to this hydronephrotic kidney and hydroureter could be urinary bladder mass. Patient has a history of urinary bladder neoplasm. New punctate calculus distal right ureter with distal hydroureter. There is stable minimal aortoiliac calcifications without abdominal aortic aneurysm. There is a fatty right inguinal hernia. I reviewed the above history, presenting complaint, physical findings, workup results including results from the laboratory data and radiographic studies with Dr. Minaya. He is emergency physician at [facility]. Patient does require both cardiology and urology. They do not have urology services at this time. He declines acceptance of this patient. We will contact other facilities. 08/02/23 14:44 08/02/23 16:[address] Roach of [facility] in [facility]. He is a hospitalist covering for their facility at this time. I reviewed the patient history, presenting complaint, history present illness and physical findings as well as he radiographic and laboratory results from our workup. He is tentatively accepting the patient awaiting discussion with the urologist. 08/02/23 16:18 I spoke with [facility] urologist who is covering at this time. This physician's name is Dr. Salinas. I reviewed the patient history, CT scan of the abdomen pelvis results with him Dr. Salinas said that he would be available to consult on this patient. I am to wait for official acceptance. 08/02/23 16:51 This patient has been officially accepted in the [facility] in [facility]. The accepting physician is Dr. Roach Counseled pt/family regarding: lab results, diagnosis, rad results Medical Desision Making - Independent Historian Additional History obtained from: Spouse - Diagnostic Testing Diagnostic test were ordered, analyzed, and reviewed by me: Yes Radiological Interpretation: Reviewed by me - Risk of complications The pt has a high risk of morbidity or mortality based on: Decision regarding hospitilization or escalation of hosp level of care - Departure Departure Disposition: Transfer Clinical Impression: Epigastric pain, Vomiting, Elevated troponin, Right ureteral calculus, Obstructive uropathy Condition: Fair Critical Care Time: No Referrals: FABIO ELY [Primary Care Provider] - Follow up/PCP as directed
[2023-08-02 12:35] VITALS: TEMP 98.3
[2023-08-02] MEDS ORDERED: Zofran 4 MG/2 ML VIAL IV ONE (12:45)
[2023-08-02] MEDS ORDERED: PROTONIX 40 MG IV IV ONE ×2 (12:45→13:31)
[2023-08-02 13:07] LABS: Absolute Neutrophil Ct (ANC) 6.77 x10^3/uL (1.4-6.9); BASOPHIL % 0.5 % (0.0-0.4); Basophil (Absolute #) 0.04 x10^3/uL (0-0.4); Eosinophil % 0.2 % (0.00-5.0); Eosinophil (Absolute #) 0.02 x10^3/uL (0-0.5); Hematocrit 43.4 % (42-50); IMMATURE GRAN # 0.03 x10^3u/L (0.00-0.03); IMMATURE GRAN % 0.4 % (0.00-0.4); Lymphocyte (Absolute #) 1.17 x10^3/uL (1.0-4.6); Lymphocytes % 13.8 % (24.0-44.0); Mean Cell Volume 86.5 fL (78-100); Mean Corpuscular Hemoglobin 27.9 pg (26-32); Mean Corpuscular Hgb Concent. 32.3 g/dL (32-36); Mean Platelet Volume 11.7 fL (7.5-11.0); Monocyte (Absolute #) 0.44 x10^3/uL (0.0-1.3); Monocytes % 5.2 % (0.0-12.0); Neutrophil % 79.9 % (36.0-66.0); Platelet Count 144 x10^3/uL (150-450); Red Blood Count 5.02 x10^6/uL (4.1-5.6); Red Cell Distribution Width 13.1 % (11.5-14.0); White Blood Count 8.5 x10^3/uL (4.0-10.5)
[2023-08-02] MEDS ORDERED: Zofran 4 MG/2 ML VIAL ONE (13:31)
[2023-08-02] MEDS ORDERED: Sodium Chloride 0.9% 1000 ML 1,000 ML ONE (13:31)
[2023-08-02 13:32] LABS: Slide Review 1 YES
[2023-08-02 13:34] LABS: ALBUMIN 4.5 g/dL (3.5-5.0); ANION GAP 15.2 MEQ/L (5-15); BILIRUBIN,TOTAL 0.8 mg/dL (0.2-1.3); Calcium 9.9 mg/dL (8.4-10.2); Creatinine 1 1.32 mg/dL (0.66-1.25); EST GLOMERULAR FILTRATION RATE 54.2 ML/MIN; Potassium 4.6 mmol/L (3.5-5.1); Total Protein 7.7 g/dL (6.3-8.2)
[2023-08-02] MEDS: Sodium Chloride 0.9% 1000 ML 1,000 ML IV SCH ×2 (13:35→18:42)
[2023-08-02 13:42] LABS: INFLUENZA A NEGATIVE (NEGATIVE); INFLUENZA B NEGATIVE (NEGATIVE); RESPIRATORY SYNCTIAL VIRUS NEGATIVE (NEGATIVE); SARS-CoV-2 Xpert Express NEGATIVE (NEGATIVE)
--- NOTE | 2023-08-02 13:43 | XRAY ---
Indication: Vomiting and epigastric pain. Multiple contiguous axial images obtained through the abdomen and pelvis without contrast. Comparison: September 15, 2022 Lung bases degraded by respiration artifact. Worsening moderate bilateral dependent atelectasis. Medial right lung base demonstrating stable 7 and 8 mm subpleural noncalcified nodules. Heart not enlarged with new cardiac clips. Stable small hiatal hernia. Noncontrasted stomach and bowel loops appear nonobstructed again with normal appendix and sigmoid diverticulosis. Stable mild fatty liver, fatty replaced pancreas, and cholecystectomy. Right kidney is now moderately hydronephrotic and edematous with tiny perinephric fluid favoring high-grade obstructive uropathy. Also new distal punctate calculus approximately 2 cm proximal to UVJ. Ureter distal to calculus is distended up to 1.3 cm including UVJ. Grossly stable bilateral renal cysts. Remaining liver, pancreas, spleen, adrenal glands, kidneys, ureters, and bladder are unremarkable for noncontrast exam. Stable minimal aortoiliac calcifications without AAA. Osseous structures intact again with osteopenia and moderate degenerative changes throughout the thoracolumbar spine. Stable small fatty right inguinal hernia. Impression: 1. Respiration artifact. 2. New hydronephrotic right kidney with renal edema and perinephric fluid favoring high-grade obstructive uropathy. New punctate calculus distal right ureter with distal hydroureter. Urinary bladder mass as potential etiology not completely excluded given previous reported bladder neoplasm. Cystoscopy may yield further information. 3. Again chronic findings including 2 indeterminate right lung base noncalcified micronodules, hiatal hernia, bilateral renal cysts, sigmoid diverticulosis, fatty liver, arteriosclerotic disease, chronic bony findings, and fatty right inguinal hernia.
[2023-08-02 13:58] LABS: TROPONIN 0.131 ng/mL (0.000-0.034)
[2023-08-02 18:43] VITALS: BP 148/92; PULSE 83; RESP 20; O2SAT 95
== END 2023-08-02 18:45 | disposition left against medical advice (07) ==
LOC: ED 12:16
DX: R10.13 Epigastric pain (principal); R11.2 Nausea with vomiting, unspecified; R79.89 Other specified abnormal findings of blood chemistry; N13.2 Hydronephrosis with renal and ureteral calculous obstruction; N13.9 Obstructive and reflux uropathy, unspecified; E78.5 Hyperlipidemia, unspecified; I10 Essential (primary) hypertension; Z79.01 Long term (current) use of anticoagulants; Z79.899 Other long term (current) drug therapy; Z28.310 Unvaccinated for COVID-19; Z20.828 Contact with and (suspected) exposure to other viral communicable diseases
CPT/HCPCS: 0241U; 36000; 36415; 74176; 80053; 82150; 83690; 84484; 85025; 86308; 93005; 96374; 96375; 99284; J2405

== ENCOUNTER 2023-09-22 07:51 | Day surgery (SDC) | payer MEDICARE ==
[2023-09-22] MEDS ORDERED: LIDOCAINE HCL 1% 50 MG/5 ML VL PF IJ ONE (07:52)
[2023-09-22] MEDS ORDERED: Epinephrine Preservative Free 1 MG/ML IJ ONE (07:52)
[2023-09-22] MEDS ORDERED: TETRACAINE 0.5% STERI-UNIT SOL OP ONE (08:00)
[2023-09-22] MEDS ORDERED: NON-FORMULARY ITEM OP ONE (08:00)
[2023-09-22] MEDS ORDERED: cefUROXime sodium 0.005 GM in Sodium Chloride Flush 30 ML*** 0.5 ML IJ ONE (08:00)
[2023-09-22] MEDS ORDERED: BETADINE 5% OPHTHALMIC 30 ML OP ONE (08:00)
[2023-09-22] MEDS ORDERED: Lactated Ringers 1,000 ML IV ONE (08:49)
[2023-09-22] MEDS: Lactated Ringers 1,000 ML IV SCH (08:52)
[2023-09-22] MEDS: TETRACAINE 0.5% STERI-UNIT SOL OP ONE (08:52)
[2023-09-22] MEDS: Ak-Dilate OPHTHALMIC*** 1.065 ML, Cyclogyl 1% OPHTH SOL 1.065 ML, GATIFLOXACIN 0.5% OPH... OP ONE (08:54)
[2023-09-22] MEDS ORDERED: Zofran 4 MG/2 ML VIAL IV PRN (11:00)
[2023-09-22] MEDS ORDERED: Versed 2 MG/2 ML Injection ONE (11:28)
[2023-09-22] MEDS ORDERED: SUBLIMAZE 100 MCG/2 ML ONE (11:28)
[2023-09-22] MEDS ORDERED: DIPRIVAN 200 MG/20 ML IV ONE (11:39)
[2023-09-22 12:00] VITALS: RESP 18
[2023-09-22] MEDS: ACETAZOLAMIDE 250 MG TABLET PO ONE (12:13)
[2023-09-22 12:26] VITALS: O2SAT 97
[2023-09-22 12:32] VITALS: BP 133/95; PULSE 60; TEMP 97.3
== END 2023-09-22 12:55 | disposition home or self-care (01) ==
LOC: SDC 07:51
PROVIDERS: ATTEND Ophthalmology
DX: H25.812 Combined forms of age-related cataract, left eye (principal); I10 Essential (primary) hypertension
CPT/HCPCS: 93005; C1780; J0171; J2001; J2250; J2704; J3010; A9270-GY

== ENCOUNTER 2023-10-08 06:42 | Emergency (ER) | payer MEDICARE ==
[2023-10-08 07:18] VITALS: TEMP 98
[2023-10-08 07:45] LABS: Absolute Neutrophil Ct (ANC) 3.55 x10^3/uL (1.4-6.9); BASOPHIL % 0.7 % (0.0-0.4); Basophil (Absolute #) 0.05 x10^3/uL (0-0.4); Eosinophil % 4.3 % (0.00-5.0); Hematocrit 41.9 % (42-50); Hemoglobin 13.5 g/dL (12.5-18.0); IMMATURE GRAN # 0.03 x10^3u/L (0.00-0.03); IMMATURE GRAN % 0.4 % (0.00-0.4); Lymphocyte (Absolute #) 2.41 x10^3/uL (1.0-4.6); Lymphocytes % 34.6 % (24.0-44.0); Mean Cell Volume 88.8 fL (78-100); Mean Corpuscular Hemoglobin 28.6 pg (26-32); Mean Corpuscular Hgb Concent. 32.2 g/dL (32-36); Mean Platelet Volume 11.7 fL (7.5-11.0); Monocyte (Absolute #) 0.63 x10^3/uL (0.0-1.3); Platelet Count 158 x10^3/uL (150-450); Red Blood Count 4.72 x10^6/uL (4.1-5.6); Red Cell Distribution Width 13.9 % (11.5-14.0)
--- NOTE | 2023-10-08 07:45 | ERPHSYRPT ---
- History of Present Illness Time Seen by Provider: 10/08/23 07:20 Source: patient, family Exam Limitations: other (dementia) Patient Subjective Stated Complaint: son states that pt fell last nigh at 2100. 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 Son states his mother called him and said that pt was unable to get out of bed this AM, could not walk and did not have much function out of his left upper extremity. Son states pt has hx of strokes in past, has afib that is rate controlled, is not on anticoagulation. Pt is AxO x 2, not oriented to time, son states this is baseline. Pt has no complaints of GUZMAN, LE pain, hip pain, abdominal pain, neck pain. Pt does endorse pain in left forearm, elbow and shoulder. Occurred: yesterday Reason for Fall: unknown, fell from standing pos Injuries/Pain Location: upper extremity Loss of Consciousness: unsure Quality: aching Severity of Pain-Max: mild Severity of Pain-Current: mild Modifying Factors: Improves With: immobilization Associated Symptoms (Fall): extremity injury, trouble walking, No abdominal pain, No back pain, No chest pain, No dizziness, No headache, No nausea, No neck pain, No shortness of breath, No slurred speech Body Map: 1 - pain 2 - pain 3 - pain Allergies/Adverse Reactions: metronidazole [From Flagyl] Allergy (Intermediate, Verified 10/08/23 06:44) Metronidazole HCl [From Flagyl] Allergy (Intermediate, Verified 10/08/23 06:44) Home Medications: Fluoxetine HCl 20 mg [Prozac 20 MG] 20 mg PO DAILY 09/03/21 [History] Famotidine [Pepcid] 20 mg PO BID 05/31/23 [History] Simvastatin 20Mg [Zocor 20Mg] 10 mg PO DAILY 05/31/23 [History] Cyanocobalamin (Vitamin B-12) [Vitamin B12] 1,000 mcg PO DAILY 08/02/23 [History] Metoprolol Succinate 25 mg Xl* [Toprol-Xl 25MG Tablets] 1 tab PO DAILY 08/02/23 [History] Tamsulosin HCl 0.4 mg [Flomax 0.4 MG] 1 cap PO DAILY 08/02/23 [History] Acetaminophen [Tylenol Extra Strength] 500 mg PO Q4HPRN PRN 09/22/23 [History] Aspirin EC 81 mg [Ecotrin 81 mg] 81 mg PO DAILY 09/22/23 [History] Acetaminophen 500 mg [Tylenol Extra Strength 500 mg] 2 tab PO Q4-6HPRN PRN 10/08/23 [History] Hx Tetanus, Diphtheria Vaccination/Date Given: No (unknown) Hx Influenza Vaccination/Date Given: No Hx Pneumococcal Vaccination/Date Given: No Travel Risk - International Travel Have you traveled outside of the country in past 3 weeks: No - Coronavirus Screening Are you exhibiting any of the following symptoms?: No Close contact with a COVID-19 positive Pt in past 14-21 Days: No - Vaccine Status Have you recieved a Covid-19 vaccination: No Conference Service Coordinator: Unknown - Vaccination Dates Dates if Unknown: patient unsure - Review of Systems Constitutional: No Symptoms Eyes: No Symptoms Ears, Nose, & Throat: No Symptoms Respiratory: No Symptoms Cardiac: No Symptoms Abdominal/Gastrointestinal: No Symptoms Genitourinary Symptoms: No Symptoms Musculoskeletal: Arthralgias, Fall Neurological: No Dizziness, No Focal Weakness, No Headache, No Irritability, No Paralysis, No Parasthesia, No Sensory Changes, No Speech Changes - Past Medical History Pertinent Past Medical History: Yes Neurological History: Stroke ENT History: No Pertinent History Cardiac History: Arrhythmia, Coronary Artery Disease, High Cholesterol, Hypertension, Myocardial Infarction (CA) Respiratory History: Other Endocrine Medical History: No Pertinent History Musculoskeletal History: No Pertinent History GI Medical History: GERD History: Bladder Cancer Psycho-Social History: Depression Male Reproductive Disorders: No Pertinent History Other Medical History: Former cigar smoker. quit in 1999. - Past Surgical History Past Surgical History: Yes Neuro Surgical History: No Pertinent History Cardiac: CABG, Cardiac Catheterization Respiratory: No Pertinent History Gastrointestinal: Cholecystectomy Genitourinary: Other Musculoskeletal: No Pertinent History Male Surgical History: No Pertinent History Other Surgical History: Bladder tumor removed. left eye cataract surgery - Social History Smoking Status: Former smoker Exposure to second hand smoke: No Drug Use: none Patient Lives Alone: No - Nursing Vital Signs Nursing Vital Signs: Initial Vital Signs Temperature 98 F 10/08/23 06:43 Pulse Rate 56 L 10/08/23 06:43 Respiratory Rate 20 10/08/23 06:43 Blood Pressure 154/71 10/08/23 06:43 O2 Sat by Pulse Oximetry 100 10/08/23 06:43 Pain Scale Pain Intensity 0 - [place] Coma Score Best Eye Response ([place]): (4) open spontaneously Best Verbal Response ([place]): (5) oriented Best Motor Response ([place]): (6) obeys commands Alexx Total: 15 - Physical Exam General Appearance: no apparent distress, alert Head Injury: no evidence of injury, No active bleeding, No Sunshine's Sign, No contusions, No lacerations Eye Exam: PERRL/EOMI, eyes nml inspection ENT Exam: airway nml, No evidence of ENT injury Neck Exam: supple, trachea midline, normal alignment, normal inspection, No stiff neck, No tenderness, No mid-line tenderness Respiratory/Chest Exam: normal breath sounds, No respiratory distress, No wheezing Cardiovascular Exam: normal heart sounds, normal peripheral pulses, bradycardia, No edema Gastrointestinal Exam: soft, No tenderness, No distention Extremity Exam: normal inspection, pelvis stable, limited range of motion (limited ROM at left elbow, left shoulder), pain with movement (left UE), No contusions, No deformities, No lacerations, No parasthesia, No paralysis, No joint swelling, No bony point tenderness, No evidence of injury, No hip tenderness, No sensory deficit Neurologic Exam: alert (AxO x 2, not oriented to time, son states this is baseline), cooperative, educational sign language interpreter II-XII nml as tested, normal mood/affect, nml cerebellar function, sensation nml, No motor deficits, No sensory deficit, No disoriented, No confusion, No agitation, No motor weakness SpO2 Interpretation: normal SpO2: 100 O2 Delivery: Room Air - Course EKG Interpreted by Me: RATE (50), Sinus Maik, NORMAL AXIS, Other (QTcB 453, no ST changes suggestive of ischemia) Ordered Tests: Active Orders 24 hr Category Date Time Status Clean Catch Urine Specimen STAT Care 10/08/23 07:[address] ANGIOGRAPHY NECK [CT] Stat Exams 10/08/23 09:52 Completed CTA HEAD W AND/OR WO CONTRAST [CT] Stat Exams 10/08/23 09:52 Completed ELBOW (MINIMUM 3 VIEWS) Stat Exams 10/08/23 07:33 Taken FOREARM Stat Exams 10/08/23 07:32 Taken HAND (MINIMUM 3 VIEWS) Stat Exams 10/08/23 07:32 Taken HEAD WITHOUT CONTRAST [CT] Stat Exams 10/08/23 07:33 Completed SHOULDER Stat Exams 10/08/23 07:33 Taken CBC W DIFF Stat Lab 10/08/23 07:22 Completed CMP Stat Lab 10/08/23 07:22 Completed ETHYL ALCOHOL Stat Lab 10/08/23 07:22 Completed TROPONIN Q4H Lab 10/08/23 07:22 Completed TROPONIN Q4H Lab 10/08/23 12:09 Completed TROPONIN Q4H Lab 10/08/23 15:13 Received TSH, 3RD Generation Stat Lab 10/08/23 07:22 Completed Urine Triage Profile Stat Lab 10/08/23 08:01 Completed Medication Summary Discontinued Medications Generic Name Dose Route Start Last Admin Trade Name Rory PRN Reason Stop Dose Admin Acetaminophen 500 mg 10/08/23 14:19 10/08/23 14:23 Acetaminophen 500 Mg Tablet PO 10/08/23 14:20 500 mg STAT STA Administration Acetaminophen Confirm 10/08/23 14:23 Acetaminophen 500 Mg Tablet Administered 10/08/23 14:24 Dose 500 mg .ROUTE .STGetSet-MED ONE Lab/Rad Data: Laboratory Result Diagrams 10/08/23 07:22 10/08/23 07:22 Laboratory Results 10/08/23 10/08/23 10/08/23 Range/Units 12:09 08:25 08:01 WBC (4.0-10.5) x10^3/uL RBC (4.1-5.6) x10^6/uL Hgb (12.5-18.0) g/dL Hct (42-50) % MCV (78-100) fL MCH (26-32) pg MCHC (32-36) g/dL RDW (11.5-14.0) % Plt Count (150-450) x10^3/uL MPV (7.5-11.0) fL Gran % (36.0-66.0) % Immature Gran % (Auto) (0.00-0.4) % Nucleat RBC Rel Count (0.00-0.1) % Eos # (Auto) (0-0.5) x10^3/uL Immature Gran # (Auto) (0.00-0.03) x10^3u/L Absolute Lymphs (auto) (1.0-4.6) x10^3/uL Absolute Monos (auto) (0.0-1.3) x10^3/uL Absolute Nucleated RBC (0.00-0.01) x10^3u/L Lymphocytes % (24.0-44.0) % Monocytes % (0.0-12.0) % Eosinophils % (0.00-5.0) % Basophils % (0.0-0.4) % Absolute Granulocytes (1.4-6.9) x10^3/uL Basophils # (0-0.4) x10^3/uL Sodium (137-145) mmol/L Potassium (3.5-5.1) mmol/L Chloride (98-107) mmol/L Carbon Dioxide (22-30) mmol/L Anion Gap (5-15) MEQ/L BUN (9-20) mg/dL Creatinine (0.66-1.25) mg/dL Estimated GFR ML/MIN Glucose (74-106) mg/dL Calcium (8.4-10.2) mg/dL Total Bilirubin (0.2-1.3) mg/dL AST (17-59) U/L ALT (0-50) U/L Alkaline Phosphatase (38-126) U/L Ammonia < 9 L (9-30) umol/L Troponin I < 0.012 (0.000-0.034) ng/mL Serum Total Protein (6.3-8.2) g/dL Albumin (3.5-5.0) g/dL TSH 3rd Generation (0.47-4.68) mIU/L Urine Opiates Level NEGATIVE (NEGATIVE) Ur Methadone NEGATIVE (NEGATIVE) Urine Barbiturates NEGATIVE (NEGATIVE) Ur Phencyclidine (PCP) NEGATIVE (NEGATIVE) Urine Amphetamine NEGATIVE (NEGATIVE) U Benzodiazepine Level NEGATIVE (NEGATIVE) Urine Cocaine NEGATIVE (NEGATIVE) Urine Marijuana (THC) NEGATIVE (NEGATIVE) Ethyl Alcohol (0-10) mg/dL 10/08/23 10/08/23 10/08/23 Range/Units 07:22 07:22 07:22 WBC (4.0-10.5) x10^3/uL RBC (4.1-5.6) x10^6/uL Hgb (12.5-18.0) g/dL Hct (42-50) % MCV (78-100) fL MCH (26-32) pg MCHC (32-36) g/dL RDW (11.5-14.0) % Plt Count (150-450) x10^3/uL MPV (7.5-11.0) fL Gran % (36.0-66.0) % Immature Gran % (Auto) (0.00-0.4) % Nucleat RBC Rel Count (0.00-0.1) % Eos # (Auto) (0-0.5) x10^3/uL Immature Gran # (Auto) (0.00-0.03) x10^3u/L Absolute Lymphs (auto) (1.0-4.6) x10^3/uL Absolute Monos (auto) (0.0-1.3) x10^3/uL Absolute Nucleated RBC (0.00-0.01) x10^3u/L Lymphocytes % (24.0-44.0) % Monocytes % (0.0-12.0) % Eosinophils % (0.00-5.0) % Basophils % (0.0-0.4) % Absolute Granulocytes (1.4-6.9) x10^3/uL Basophils # (0-0.4) x10^3/uL Sodium 137 (137-145) mmol/L Potassium 4.4 (3.5-5.1) mmol/L Chloride 106 (98-107) mmol/L Carbon Dioxide 25 (22-30) mmol/L Anion Gap 10.6 (5-15) MEQ/L BUN 19 (9-20) mg/dL Creatinine 0.95 (0.66-1.25) mg/dL Estimated GFR 80.4 ML/MIN Glucose 129 H (74-106) mg/dL Calcium 10.0 (8.4-10.2) mg/dL Total Bilirubin 0.40 (0.2-1.3) mg/dL AST 23 (17-59) U/L ALT 11 (0-50) U/L Alkaline Phosphatase 51 (38-126) U/L Ammonia (9-30) umol/L Troponin I < 0.012 (0.000-0.034) ng/mL Serum Total Protein 7.3 (6.3-8.2) g/dL Albumin 4.5 (3.5-5.0) g/dL TSH 3rd Generation 3.250 (0.47-4.68) mIU/L Urine Opiates Level (NEGATIVE) Ur Methadone (NEGATIVE) Urine Barbiturates (NEGATIVE) Ur Phencyclidine (PCP) (NEGATIVE) Urine Amphetamine (NEGATIVE) U Benzodiazepine Level (NEGATIVE) Urine Cocaine (NEGATIVE) Urine Marijuana (THC) (NEGATIVE) Ethyl Alcohol < 10 (0-10) mg/dL 10/08/23 Range/Units 07:22 WBC 7.0 (4.0-10.5) x10^3/uL RBC 4.72 (4.1-5.6) x10^6/uL Hgb 13.5 (12.5-18.0) g/dL Hct 41.9 L (42-50) % MCV 88.8 (78-100) fL MCH 28.6 (26-32) pg MCHC 32.2 (32-36) g/dL RDW 13.9 (11.5-14.0) % Plt Count 158 (150-450) x10^3/uL MPV 11.7 H (7.5-11.0) fL Gran % 51.0 (36.0-66.0) % Immature Gran % (Auto) 0.4 (0.00-0.4) % Nucleat RBC Rel Count 0.0 (0.00-0.1) % Eos # (Auto) 0.30 (0-0.5) x10^3/uL Immature Gran # (Auto) 0.03 (0.00-0.03) x10^3u/L Absolute Lymphs (auto) 2.41 (1.0-4.6) x10^3/uL Absolute Monos (auto) 0.63 (0.0-1.3) x10^3/uL Absolute Nucleated RBC 0.00 (0.00-0.01) x10^3u/L Lymphocytes % 34.6 (24.0-44.0) % Monocytes % 9.0 (0.0-12.0) % Eosinophils % 4.3 (0.00-5.0) % Basophils % 0.7 (0.0-0.4) % Absolute Granulocytes 3.55 (1.4-6.9) x10^3/uL Basophils # 0.05 (0-0.4) x10^3/uL Sodium (137-145) mmol/L Potassium (3.5-5.1) mmol/L Chloride (98-107) mmol/L Carbon Dioxide (22-30) mmol/L Anion Gap (5-15) MEQ/L BUN (9-20) mg/dL Creatinine (0.66-1.25) mg/dL Estimated GFR ML/MIN Glucose (74-106) mg/dL Calcium (8.4-10.2) mg/dL Total Bilirubin (0.2-1.3) mg/dL AST (17-59) U/L ALT (0-50) U/L Alkaline Phosphatase (38-126) U/L Ammonia (9-30) umol/L Troponin I (0.000-0.034) ng/mL Serum Total Protein (6.3-8.2) g/dL Albumin (3.5-5.0) g/dL TSH 3rd Generation (0.47-4.68) mIU/L Urine Opiates Level (NEGATIVE) Ur Methadone (NEGATIVE) Urine Barbiturates (NEGATIVE) Ur Phencyclidine (PCP) (NEGATIVE) Urine Amphetamine (NEGATIVE) U Benzodiazepine Level (NEGATIVE) Urine Cocaine (NEGATIVE) Urine Marijuana (THC) (NEGATIVE) Ethyl Alcohol (0-10) mg/dL - Progress Progress: improved Progress Note: 10/08/23 08:[address] head showed no acute abnormality, mild diffuse cerebral atrophy 10/08/23 09:54 no new deficits appreciated, reports improvement in left UE pain plan for CTA head/neck for r/o ischemic stroke 10/08/23 09:55 repeat NIHSS 0 10/08/23 11:19 repeat NIHSS 0 pt is complaining of mild GUZMAN behind eyes b/l 20ga IV placed in lower extremity, will proceed w/ CTA head/neck 10/08/23 14:14 CTA head/neck negative for acute thrombus or acute intracranial abnormality pt complaining of GUZMAN behind eyes poor balance and gait still, was able to ambulate w/o assistance prior to yesterday son persistent that gait change is new and is concerned plan for transfer to MRI capable center for definitive stroke r/o will give 650mg tylenol PO for GUZMAN 10/08/23 15:10 discussed transfer for further stroke rule out w/ Dr Harper at [facility] who accepts transfer Discussed with .: Other (Dr Harper [facility]) Will see patient in: hospital (observation) (Transfer to [facility]) Counseled pt/family regarding: lab results, diagnosis, need for follow-up, rad results Medical Desision Making - Discussion of managment Care discussed with:: hospitalist (Dr Harper [facility]) Reviewed:: Test results, Need for additional workup Agreed on:: place in obs Will see patient: in hospital ([facility] transfer) - Diagnostic Testing Diagnostic test were ordered, analyzed, and reviewed by me: Yes Radiological Interpretation: Reviewed by me, Teleradiologist Report - Risk of complications The pt has a high risk of morbidity or mortality based on: Decision regarding hospitilization or escalation of hosp level of care - Departure Departure Disposition: Transfer ([facility]) Clinical Impression: Left leg weakness, Gait disturbance Condition: Stable Critical Care Time: No Referrals: FABIO ELY [Primary Care Provider] - Follow up/PCP as directed
--- NOTE | 2023-10-08 08:37 | XRAY ---
CLINICAL HISTORY: fall TECHNIQUE: Contiguous CT axial images of the brain are obtained without intravenous contrast. Reformatted images were also performed COMPARISON: None. FINDINGS: Mild diffuse cerebral atrophy is seen. Chronic periventricular white matter ischemia is seen. Left frontal deep subcortical hypodense area roughly measuring 2x1.2 cm with no definite surrounding edema. No acute intracranial abnormality is present. No evidence of acute cortical infarction, hemorrhage, mass or mass effect. Mildly dilated ventricular system. No abnormal extra-axial fluid collections are present. The posterior fossa is unremarkable. The skull base and calvarium are intact. Minimal left maxillary sinusitis. IMPRESSION: 1. No acute intracranial abnormality is present. 2. Mild diffuse cerebral atrophy. 3. Chronic periventricular white matter ischemia. 4. Please correlate with MRI if needed. 5. Early changes of stroke may not be detected on CT scan. If strong clinical suspicion for stroke then suggest MRI with diffusion-weighted imaging. 6. Recommendation: Follow up as clinically indicated. 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 Electronically Signed by: Nayla Rogel MD. (10/08/2023 08:32:17 EST)
[2023-10-08 08:42] LABS: ALBUMIN 4.5 g/dL (3.5-5.0); ALKALINE PHOSPHATASE 51 U/L (38-126); ANION GAP 10.6 MEQ/L (5-15); BLOOD UREA NITROGEN 19 mg/dL (9-20); CHLORIDE 106 mmol/L (98-107); Carbon Dioxide 25 mmol/L (22-30); Creatinine 1 0.95 mg/dL (0.66-1.25); EST GLOMERULAR FILTRATION RATE 80.4 ML/MIN; ETHYL ALCOHOL < 10 mg/dL (0-10); Glucose 129 mg/dL (74-106); Potassium 4.4 mmol/L (3.5-5.1); SGOT/AST 23 U/L (17-59); SGPT/ALT 11 U/L (0-50); SODIUM 137 mmol/L (137-145); Total Protein 7.3 g/dL (6.3-8.2)
[2023-10-08 08:46] LABS: Amphetamine,Urine NEGATIVE (NEGATIVE); Barbiturate,Urine NEGATIVE (NEGATIVE); Benzodiazepine,Urine NEGATIVE (NEGATIVE); Cocaine,Urine NEGATIVE (NEGATIVE); Methadone,Urine NEGATIVE (NEGATIVE); Opiate,Urine NEGATIVE (NEGATIVE); PCP,Urine NEGATIVE (NEGATIVE); THC,Urine NEGATIVE (NEGATIVE)
--- NOTE | 2023-10-08 13:19 | XRAY ---
CLINICAL HISTORY: stroke rule out TECHNIQUE: Contiguous CTA axial images of the brain are obtained with and without intravenous contrast. Reformatted images were also performed in 2D and 3D. DLP 651.69 mGy*cm. COMPARISON: 10/08/2023 CT brain. FINDINGS: Normal vertebro-basilar arterial system, with normal appearance of both vertebral, PICA, basilar and both superior cerebellar arteries as well as both posterior cerebral arteries. Normal angiographic features of the intracranial portions of both internal carotid arteries. Normal course, caliber and branching of the anterior and middle cerebral arteries on both sides. No identifiable angiomatous malformations, nor aneurysmal dilatation. Redemonstrated Mild diffuse cerebral atrophy is seen. Chronic periventricular white matter ischemia is seen. No pathologically enhancing lesions. Mildly dilated ventricular system. No abnormal extra-axial fluid collections are present. The posterior fossa is unremarkable. The skull base and calvarium are intact. Minimal left maxillary sinusitis. IMPRESSION: 1. Unremarkable angiographic study of the cerebral arterial vascular system. 2. No acute intracranial abnormality is present. 3. Mild diffuse cerebral atrophy. 4. Chronic periventricular white matter ischemia. 5. Please correlate with MRI if needed. Electronically Signed by: Nayla Rogel MD. (10/08/2023 13:15:53 EST)
--- NOTE | 2023-10-08 13:49 | XRAY ---
CLINICAL HISTORY: stroke rule out TECHNIQUE: An axial CTA neck was performed with IV contrast. Multiple reformats were obtained in 2D and 3D images and submitted for interpretation. COMPARISON: None. FINDINGS: Bilateral common carotid arteries are patent and of average caliber with few small calcific plaques without causing significant stenosis or occlusion. The carotid bulbs are patent bilaterally. The cervical segments of both internal carotid arteries are patent, tortuous, show few calcific plaques and intimal thickening suggestive of atherosclerotic changes and more appreciated at the left side causing less than 50% stenosis. No occlusion. There is a dangerous course of both arteries at the retropharyngeal space. The external carotid arteries bilaterally are normal in diameters, showing patent enhancing lumens. The cervical vertebral arteries bilaterally are patent showing fair contrast opacification, Cervical spine advanced degenerative changes with neurocentral joint arthropathy. IMPRESSION: 1. Atherosclerotic changes of the extra cranial carotid arteries with calcific plaques cause less than 50% stenosis. 2. 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 3. 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 Electronically Signed by: Nayla Rogel MD. (10/08/2023 13:44:06 EST)
[2023-10-08] MEDS: TYLENOL EXTRA STRENGTH 500 MG PO STA (14:23)
[2023-10-08] MEDS ORDERED: TYLENOL EXTRA STRENGTH 500 MG ONE (14:23)
[2023-10-08 16:39] VITALS: BP 156/90; PULSE 94; RESP 18; O2SAT 98
--- NOTE | 2023-10-08 19:03 | XRAY ---
Indication: Pain following fall. Comparison: None 3 view left elbow demonstrates tiny spurring coronoid/olecranon processes and lateral epicondyle. No other bony, articular, or soft tissue abnormalities
--- NOTE | 2023-10-08 19:03 | XRAY ---
Indication: Pain following fall. Comparison: None 2 view left forearm obtained. No bony, articular, or soft tissue abnormalities.
--- NOTE | 2023-10-08 19:05 | XRAY ---
Indication: Pain following fall. Comparison: None 3 view left hand demonstrates moderate/advanced 1st metacarpal multangular scaphoid degenerative changes and 2 mm soft tissue foreign body between 1st/2nd metacarpals. No other bony, articular, or soft tissue abnormalities.
--- NOTE | 2023-10-08 19:07 | XRAY ---
Indication: Pain following fall. Comparison: None 3 view left shoulder demonstrates mild AC degenerative arthropathy and CABG. No other bony, articular, or soft tissue abnormalities.
== END 2023-10-08 16:40 | disposition short-term general hospital (02) ==
LOC: ED 06:42
DX: Z04.3 Encounter for examination and observation following other accident (principal); R26.9 Unspecified abnormalities of gait and mobility; M62.81 Muscle weakness (generalized); M79.632 Pain in left forearm; M25.512 Pain in left shoulder; M25.522 Pain in left elbow; E78.5 Hyperlipidemia, unspecified; I10 Essential (primary) hypertension; Z79.899 Other long term (current) drug therapy
CPT/HCPCS: 36000; 36415; 70450; 70496; 70498; 73030; 73080; 73090; 73130; 80053; 80307; 82077; 82140; 84443; 84484; 85025; 99285; A9270-GY